=== PATIENT | female | born 2000 | race Caucasian/White ===

== ENCOUNTER 2021-04-26 12:00 | Emergency (ER) | payer OTHER, SELFPAY ==
--- NOTE | ~2021-04-26 | XR_ITS ---
EXAMINATION: XR CHEST CLINICAL INFORMATION: Cough COMPARISON: None TECHNIQUE: Portable upright AP view of the chest was obtained. FINDINGS: The lungs are clear. There is no airspace consolidation or groundglass opacity or effusion. The heart is normal in size. The vascularity is normal. The hilar and mediastinal contours and visualized bony structures are unremarkable. XR/XR chest 1V IMPRESSION: Unremarkable examination.
[2021-04-26 12:22] VITALS: BP 131/95; PULSE 87; RESP 18; TEMP 36.7; O2SAT 97; BMI 40.7
[2021-04-26 12:48] LABS: COVID-19 Test Negative (Negative); IDNOW Serial# 9DD0AD1C
[2021-04-26 15:42] VITALS: BP 126/80; PULSE 82; RESP 18; TEMP 36.4; O2SAT 98
--- NOTE | 2021-04-26 16:46 | ED_ITS ---
HPI - URI/Sore Throat General Chief Complaint: Upper Respiratory Symptoms Stated Complaint: congestion, cough, loss of taste & smell Time Seen by Provider: 04/26/21 16:04 Source: patient Mode of arrival: ambulatory History of Present Illness HPI Narrative: 21-year-old female with a past medical history of hypertension, recently finished course Amoxicillin and Augmentin for strep pharyngitis, presenting to the ED complaining of productive cough, chest congestion, rhinorrhea, sinus pressure, headache x a couple days. Reports mild SOB during cough attack. Admits to coughing up phlegm with blood streaks this morning. Denies fever, chills, ear pain, nausea/vomiting, LE edema/calf pain, recent travel, sick contacts, sore throat at present MD elicited complaint: cough, rhinorrhea and nasal congestion Related Data Previous Rx's Medication Instructions Recorded albuterol sulfate 90 mcg/actuation 2 puff INHALATION Q4-6H PRN #6.7 g 04/26/21 aerosol inhaler benzonatate 200 mg capsule 200 mg PO TID PRN #20 cap 04/26/21 fluticasone propionate 50 2 spray INTRANASAL DAILY #16 g 04/26/21 mcg/actuation nasal spray,suspension (Flonase Allergy Relief) Allergies Allergy/AdvReac Type Severity Reaction Status Date / Time No Known Allergies Allergy Unverified 04/26/21 16:09 Review of Systems Review of Systems: Constitutional: No Fever, No Chills ENT/Mouth: No Ear Pain, + Nasal Congestion, + Sinus Pain, No Hoarseness, No sore throat, + Rhinorrhea, No Swallowing Difficulty Cardiovascular: No Chest Pain, + SOB when coughing Respiratory: + Cough, + Sputum, No Wheezing, no LE edema, no calf pain Gastrointestinal: No Nausea, No Vomiting, No Diarrhea, No Constipation, No Abdominal pain Genitourinary:, No Dysuria, No Urgency, No Flank Pain Musculoskeletal: No joint pain, No Myalgias, No Joint Swelling Skin: No Skin Lesions, No rash Neuro: No Weakness, No Numbness, No Paresthesias Yes all other systems are reviewed and are negative [facility] Past Medical History Attestation statement: The following information was validated with the patient. Medical History (Updated 04/26/21 @ 16:51 by LC Davis) HTN (hypertension) Social History Social History Advance Directives: No Advance Directives Information Provided: Yes Advance Directives on File: No Physical Exam Vital Signs: Vital Signs: Last Vital Signs Temp 97.5 F 04/26/21 15:42 Pulse 82 04/26/21 15:42 Resp 18 04/26/21 15:42 BP 126/80 04/26/21 15:42 Pulse Ox 98 04/26/21 15:42 Body Mass Index 40.7 Const: General: cooperative, healthy appearing and no acute distress Orientation/consciousness: patient oriented x3 Limitations: no limitations HENMT: Head: Yes normal to inspection Ears: hearing grossly normal bilaterally, external ears normal, TM's normal bilaterally and mastoids normal General nose exam: Normal external nose present Face and sinus: Yes normal f acial exam Mouth: Normal oral and palatal mucosa present Throat: Yes posterior oropharynx normal, Yes uvula midline, No peritonsillar mass, No uvula laterally displaced and No uvular edema Eyes: General: appearance normal, both eyes and all related structures EOM: EOMs intact bilaterally Neck: Neck: Yes normal visual inspection, Yes no lymphadenopathy, Yes no meningeal signs, Yes trachea midline and Yes supple Resp: Effort & Inspection: normal respiratory effort Auscultation: clear to auscultation bilaterally, no rales, no rhonchi and no wheezes Cardio: Rate: regular rate Heart sounds: S1 normal heart sound present and S2 normal heart sound present GI: Inspection: Yes normal to inspection Palpation (GI): Soft to palpation, nontender and no guarding Skin: Rashes: no rashes Wounds: no wounds Neuro: General: patient oriented x3 and no meningeal signs Gait exam (Neuro): Normal gait present Extrem: General: Yes normal to inspection, Yes no pedal edema and Yes no calf tenderness Course Course Course Narrative: -COVID-19 negative -CXR unremarkable. Results discussed with patient including worrisome signs and symptoms and strict return precautions and need to follow-up with PCP No need for additional antibiotics at this time as patient just finished two separate courses of antibiotics for strep pharyngitis 2 days ago MDM - URI/Sore Throat MDM Narrative Medical decision making narrative: 21-year-old female with a past medical history of hypertension, recently finished course Amoxicillin and Augmentin for strep pharyngitis, presenting to the ED complaining of productive cough, chest congestion, rhinorrhea, sinus pressure, headache x a couple days. On exam vital signs stable, NAD/nontoxic, lungs CTA, oropharynx/TMs WNL. Concern for bronchitis vs sinusitis. Low concern for ACS/PE Plan: CXR, COVID-19 testing Medical Records Attestation: I reviewed the patient's medical records. Lab Data Attestation: I reviewed the patient's lab results. Labs: Lab Results 04/26/21 Range/Units 12:26 COVID-19 ([facility]ISA) Negative (Negative) COVID-19 Clin Com See Note Discharge Plan Discharge Clinical Impression: Bronchitis Patient Disposition: Home, Self-Care Instructions: Acute Bronchitis (ED) Additional Instructions: You test negative for COVID-19. Her x-ray was unremarkable. You likely a bronchitis Use albuterol inhaler for shortness of breath/wheezing Tessalon Perles for cough Flonase is a nasal decongestant Make sure staying hydrated, push fluids If symptoms persist/worsen you have constant worsening shortness of breath/wheezing, fever unresolved medications please return to the ED Please follow-up with her doctor Prescriptions: New benzonatate 200 mg capsule 200 mg PO TID PRN (Reason: cough) Qty: 20 RF: 0 albuterol sulfate 90 mcg/actuation HFA aerosol inhaler 2 puff inhalation Q4-6H PRN (Reason: shortness of breath or wheezing) Qty: 6.7 RF: 0 fluticasone propionate [Flonase Allergy Relief] 50 mcg/actuation spray,suspension 2 spray intranasal DAILY Qty: 16 RF: 0 Referrals: Physician,Unknown J [Primary Care Provider] - 2 days Stand Alone Forms: Work/School Release
[2021-04-26] MEDS: Benzonatate 100 MG CAPSULE 200 MG PO (17:20)
[2021-04-26] MEDS: HYDROcodone/Homat 5/1.5/5 ML 5 ML SYRUP PO (17:20)
== END 2021-04-26 17:36 | disposition home or self-care (01) ==
PROVIDERS: Emergency Provider Emergency Medicine
DX: J40 Bronchitis, not specified as acute or chronic (principal); I10 Essential (primary) hypertension; Z20.822 Contact with and (suspected) exposure to COVID-19
CPT/HCPCS: 36415; 71045; 87635; 99283; 99284

== ENCOUNTER 2021-05-29 11:42 | Emergency (ER) | payer OTHER, SELFPAY ==
[2021-05-29 13:26] VITALS: BP 144/82; PULSE 102; RESP 19; TEMP 37.1; O2SAT 97; BMI 40.7
--- NOTE | 2021-05-29 13:56 | ED_ITS ---
HPI - URI/Sore Throat General Chief Complaint: General Medical Stated Complaint: sore throat Time Seen by Provider: 05/29/21 13:47 Source: patient Mode of arrival: ambulatory Limitations: no limitations History of Present Illness MD elicited complaint: sore throat Pertinent past history: other (3rd bout of strep this year - tolerates amoxicillin well) Onset (ago): day(s) (3) Consistency: constant Severity: moderate Description of mucous: clear Able to tolerate fluids by mouth: Yes Exacerbating factors: swallowing Relieving factors: nothing Context: other (hx of same in past) Associated symptoms: voice changes and sore throat Treatments prior to arrival: none Related Data Previous Rx's Medication Instructions Recorded albuterol sulfate 90 mcg/actuation 2 puff INHALATION Q4-6H PRN #6.7 g 04/26/21 aerosol inhaler benzonatate 200 mg capsule 200 mg PO TID PRN #20 cap 04/26/21 fluticasone propionate 50 2 spray INTRANASAL DAILY #16 g 04/26/21 mcg/actuation nasal spray,suspension (Flonase Allergy Relief) amoxicillin 875 mg-potassium 1 tab PO BID 10 Days #20 tab 05/29/21 clavulanate 125 mg tablet (Augmentin) Allergies Allergy/AdvReac Type Severity Reaction Status Date / Time No Known Allergies Allergy Verified 05/29/21 13:29 Review of Systems Review of Systems: Constitutional : no Fever, positive Chills, positive fatigue, positive Malaise ENT/Mouth : positive sore throat, no runny nose Eyes: No Discharge Cardiovascular : No Chest Pain, No SOB Respiratory : No Cough, No Sputum Gastrointestinal : No Nausea, No Vomiting, No Diarrhea Genitourinary : No Dysuria, No Urinary Frequency Musculoskeletal : no Myalgia Skin : No rash Neuro : No Headache PMFSH Past Medical History Medical History HTN (hypertension) Social History Social History (Updated 05/29/21 @ 14:03 by Diamond Hampton DO) Patient Tobacco Use Status: Current everyday Tobacco user Advance Directives: Yes Advance Directives Information Provided: Yes Advance Directives on File: No Patient : No Physical Exam Vital Signs: Vital Signs: Last Vital Signs Temp 98.7 F 05/29/21 13:26 Pulse 102 H 05/29/21 13:26 Resp 19 05/29/21 13:26 BP 144/82 H 05/29/21 13:26 Pulse Ox 97 05/29/21 13:26 BMI result Body Mass Index 40.7 Appearance: Alert. Oriented X3. No acute distress. Eyes: Pupils equal, round and reactive to light. ENT: moderage generalized erythema with patches symmetric uvula midline tolerating secretions Neck: bilateral anterior tender mild cervical lymphadenopathy CVS: Normal heart rate and rhythm. Pulses normal. Respiratory: No respiratory distress. Breath sounds normal. Abdomen: Soft and nontender. Skin: Skin warm and dry. Normal skin color. Extremities: No lower extremity edema. Neuro: Oriented X 3. No motor deficit. No sensory deficit. MDM - URI/Sore Throat MDM Narrative Medical decision making narrative: 21 yo female smoker recurrent GAS pharyngitis - at this time she is able to tolerate saliva and uvula is midline no evidence of [employer] or deeper space infection will obtain COVID/rapid strep - motrin, dexamethasone and augmentin has not failed amoxicillin in the past. Lab Data Labs: Lab Results 05/29/21 Range/Units 13:40 S. pyogenes GrpA SWETHA Negative (Negative) Discharge Plan Discharge Clinical Impression: Pharyngitis Qualifiers: Pharyngitis/tonsillitis etiology: unspecified etiology Qualified Code(s): J02.9 - Acute pharyngitis, unspecified Patient Disposition: Home, Self-Care Instructions: Pharyngitis (ED) Additional Instructions: return to ED for any worsening symptoms or concerns call [facility] ENT Prescriptions: New amoxicillin-pot clavulanate [Augmentin] 875-125 mg tablet 1 tab PO BID 10 Days Qty: 20 RF: 0 No Action benzonatate 200 mg capsule 200 mg PO TID PRN (Reason: cough) Qty: 20 RF: 0 albuterol sulfate 90 mcg/actuation HFA aerosol inhaler 2 puff inhalation Q4-6H PRN (Reason: shortness of breath or wheezing) Qty: 6.7 RF: 0 fluticasone propionate [Flonase Allergy Relief] 50 mcg/actuation spray,suspension 2 spray intranasal DAILY Qty: 16 RF: 0 Stand Alone Forms: Work/School Release
[2021-05-29] MEDS: Amoxicillin/Potassium Clav 875 MG TABLET PO (14:02)
[2021-05-29] MEDS: dexAMETHasone sod phosphate 4 MG/ML VIAL 8 MG IVPUSH (14:02)
[2021-05-29] MEDS: Ibuprofen Oral Susp 200 MG/10 ML ORAL.SUSP 600 MG PO (14:03)
[2021-05-29 14:28] LABS: IDNOW Serial# 9DD0AD1C; Strep A Nucleic Acid Negative (Negative)
== END 2021-05-29 14:46 | disposition home or self-care (01) ==
PROVIDERS: Emergency Provider Emergency Medicine
DX: J02.9 Acute pharyngitis, unspecified (principal); I10 Essential (primary) hypertension; F17.200 Nicotine dependence, unspecified, uncomplicated
CPT/HCPCS: 36415; 87651; 99283; J1100

== ENCOUNTER 2022-03-08 19:51 | Emergency (ER) | payer OTHER, SELFPAY ==
--- NOTE | ~2022-03-08 | US_ITS ---
EXAMINATION: US OBSTETRICAL ULTRASOUND CLINICAL INFORMATION: Vaginal spotting COMPARISON: None. LMP: Not known. TECHNIQUE: Both transabdominal endovaginal scanning was performed FINDINGS: The uterus measures 9.5 x 4.4 x 6.9 cm. A gestational sac is present. A pole or yolk sac is not identified. The gestational sac has a teardrop shaped measuring 2.6 x 1.8 x 1.9 cm. This would correlate with a gestational age of 7 weeks 1 day by, as stated above, a pole was not seen. MATERNAL ADNEXA: The right maternal ovary measures 4.5 x 2.4 x 2.2 cm which includes a 2.4 x 1.4 x 1.2 cm cyst. The left maternal ovary measures 3.1 x 1.8 x 1.8 cm. There is no significant maternal adnexal mass. Trace fluid is seen in the cul-de-sac US/US OB pelvic and transvaginal IMPRESSION: A gestational sac is seen without a pole or yolk sac. Given the size of the sac, gestational age would be expected to be 7 weeks 1 day. Findings may represent a missed .
[2022-03-08 20:00] VITALS: BP 160/94; PULSE 100; RESP 18; TEMP 37.2; O2SAT 100; BMI 36.0
[2022-03-08 20:11] LABS: MANUAL DIFF FLAG NO
[2022-03-08 20:22] LABS: Basophils Absolute Auto 0.1 X10*3/uL (0.0-0.2); Basophils Percent Auto 0.8 % (0-2); Eosinophils Percent Auto 0.2 % (0-4); Hematocrit 41.2 % (37.0-47.0); Hemoglobin 14.4 g/dl (12.0-16.0); Imm Gran Abs Auto 0.01 X10*3/uL (0.00-0.03); Imm Gran Pct Auto 0.1 % (0.0-0.4); Lymphocytes Absolute Auto 2.5 X10*3/uL (1.2-4.9); Lymphocytes Percent Auto 27.1 % (20-40); Mean Corpuscular Hemoglobin 29.8 pg (27.0-33.0); Mean Corpuscular Volume 85.3 fL (80.0-98.0); Mean Platelet Volume 10.3 fL (9.4-12.3); Monocytes Absolute Auto 0.8 X10*3/uL (0.1-1.2); Neutrophils Absolute Auto 5.8 x10*3/uL (2.0-8.3); Neutrophils Percent Auto 62.8 % (45-73); Platelet Count 334 X10*3/uL (160-400); Red Blood Count 4.83 X10*6/uL (4.20-5.50); Red Cell Distribution Width 11.8 % (11.0-16.0); White Blood Count 9.3 X10*3/uL (4.8-10.8)
[2022-03-08 20:29] LABS: COVID-19 Test Negative (Negative)
[2022-03-08 20:37] LABS: Alanine Aminotransferase 18 U/L (0-31); Albumin Level 4.7 g/dL (3.5-5.0); Alkaline Phosphatase 51 U/L (39-117); Anion Gap 16 (12-20); Aspartate Amino Transferase 21 U/L (5-31); Bilirubin Direct 0.3 mg/dL (0.0-0.5); Blood Urea Nitrogen 6 mg/dL (9-16); Carbon Dioxide 28 mmol/L (22-29); Chloride 98 mmol/L (96-108); Estimated Glomerular Filt Rate > 60; Glucose Random 73 mg/dL (60-115); Lipase 17 U/L (8-78); Potassium 3.5 mmol/L (3.3-5.1); Sodium 138 mmol/L (135-145); Total Protein 7.8 g/dL (6.5-8.0)
[2022-03-08 20:48] LABS: Appearance Urine Clear; Color Urine Yellow; Glucose Urine UA Negative (Negative); Leukocyte Esterase Urine Trace (Negative); Nitrite Urine Negative (Negative); Specific Gravity - Urine 1.025 (1.005-1.025); UMIC TRIGGER UACC YES; Urine Blood Negative (Negative); Urine Ketones Trace mg/dL (Negative); Urine Protein Negative (Neg-Trace)
[2022-03-08 20:50] LABS: UPreg QC Valid YES; Urine Pregnancy POSITIVE (NEGATIVE)
[2022-03-08 20:53] LABS: Bacteria Urine 1+ (None Seen); Hyaline Casts Urine 0-2 /LPF (0-2); RBC Urine 0-2 /HPF (0-2); WBC Urine 0-5 /HPF (0-5)
--- NOTE | 2022-03-08 23:27 | ED_ITS ---
HPI - Nausea/Vomiting/Diarrhea General Chief complaint: Nausea/Vomiting/Diarrhea Stated complaint: vomitting Time Seen by Provider: 03/08/22 23:19 Source: patient Mode of arrival: ambulatory Limitations: no limitations History of Present Illness HPI Narrative: Patient with no significant past medical history been nauseated for last 1 week vaginal spotting it has irregular menstrual period, checked 3 times home pr egnancy negative comes here as still nauseated vomiting off and on diffuse abdominal pain Related Data Previous Rx's Medication Instructions Recorded albuterol sulfate 90 mcg/actuation 2 puff inhalation Q4-6H PRN 04/26/21 aerosol inhaler shortness of breath or wheezing #6.7 grams benzonatate 200 mg capsule 200 mg PO TID PRN cough #20 caps 04/26/21 fluticasone propionate 50 2 spray intranasal DAILY #16 grams 04/26/21 mcg/actuation nasal spray,suspension (Flonase Allergy Relief) amoxicillin 875 mg-potassium 1 tab PO BID 10 days #20 tabs 05/29/21 clavulanate 125 mg tablet (Augmentin) lorazepam 1 mg tablet (Ativan) 1 mg PO BEDTIME PRN anxiety #10 03/09/22 tabs ondansetron 4 mg disintegrating 4 mg PO Q6-8H PRN nausea and 03/09/22 tablet vomiting #7 tabs Allergies Allergy/AdvReac Type Severity Reaction Status Date / Time No Known Allergies Allergy Verified 05/29/21 13:29 Review of Systems Review of Systems: Yes all other systems are reviewed and are negative PMFSH Past Medical History Medical History HTN (hypertension) Social History Social History Patient Tobacco Use Status: Current everyday Tobacco user Advance Directives: No Advance Directives Information Provided: No Physical Exam Vital Signs: Vital Signs: Last Vital Signs Temp 98.9 F 03/08/22 20:00 Pulse 100 03/08/22 20:00 Resp 18 03/08/22 20:00 BP 160/94 H 03/08/22 20:00 Pulse Ox 100 03/08/22 20:00 O2 Del Method 03/08/22 20:00 BMI result Body Mass Index 36.0 Appearance: Alert. Oriented X3. No acute distress. Eyes: No pallor or icterus ENT: Pharynx normal. Oral Mucosa moist Neck: Normal inspection. Neck supple. CVS: Normal heart rate and rhythm. Pulses normal. Respiratory: No respiratory distress. Equal air entry bilateral, no wheezing/rales/rhonchi Abdomen: Soft and nontender. Bowel sounds are present, no mass palpable, no CVA tenderness Skin: Skin warm and dry. Normal skin color. Normal skin turgor. Extremities: No lower extremity edema. No calf tenderness Neuro: Oriented X 3. No motor deficit. No sensory deficit.No cerebellar signs , cranial nerves II-XII intact MDM - Nausea/Vomiting/Diarrhea MDM Narrative Medical decision making narrative: Patient is 7 weeks 1 day ultrasound showed gestational sec without pole likely having miscarriage. Patient advised to follow-up with [facility] Lab Data Attestation: I reviewed the patient's lab results. Result diagrams: 03/08/22 20:06 03/08/22 20:06 Labs: Lab Results 03/08/22 03/08/22 03/08/22 Range/Units 20:06 20:06 20:06 WBC 9.3 (4.8-10.8) X10*3/uL RBC 4.83 (4.20-5.50) X10*6/uL Hgb 14.4 (12.0-16.0) g/dl Hct 41.2 (37.0-47.0) % MCV 85.3 (80.0-98.0) fL MCH 29.8 (27.0-33.0) pg MCHC 35.0 (31.0-35.0) g/dl RDW 11.8 (11.0-16.0) % Plt Count 334 (160-400) X10*3/uL MPV 10.3 (9.4-12.3) fL Immature Gran % (Auto) 0.1 (0.0-0.4) % Neut % (Auto) 62.8 (45-73) % Lymph % (Auto) 27.1 (20-40) % Coffee % (Auto) 9.0 (2-11) % Eos % (Auto) 0.2 (0-4) % Baso % (Auto) 0.8 (0-2) % Lymph # (Auto) 2.5 (1.2-4.9) X10*3/uL Coffee # (Auto) 0.8 (0.1-1.2) X10*3/uL Eos # (Auto) 0.0 (0.0-0.4) X10*3/uL Baso # (Auto) 0.1 (0.0-0.2) X10*3/uL Abs Immat Gran (auto) 0.01 (0.00-0.03) X10*3/uL Absolute Neuts (auto) 5.8 (2.0-8.3) x10*3/uL Absolute Nucleated RBC 0.000 (0.0-0.012) X10*3/uL Nucleated RBC % (auto) 0.0 (0.0-0.2) /100WBC Sodium 138 (135-145) mmol/L Potassium 3.5 (3.3-5.1) mmol/L Chloride 98 (96-108) mmol/L Carbon Dioxide 28 (22-29) mmol/L Anion Gap 16 (12-20) BUN 6 L (9-16) mg/dL Creatinine 0.81 (0.5-1.4) mg/dL Estim Creat Clear Calc 133.0 Estimated GFR > 60 Random Glucose 73 (60-115) mg/dL Calcium 10.0 (8.4-10.2) mg/dL Total Bilirubin 1.0 (0.0-1.0) mg/dL Direct Bilirubin 0.3 (0.0-0.5) mg/dL AST 21 (5-31) U/L ALT 18 (0-31) U/L Alkaline Phosphatase 51 (39-117) U/L Total Protein 7.8 (6.5-8.0) g/dL Albumin 4.7 (3.5-5.0) g/dL Lipase 17 (8-78) U/L Beta HCG, Quant 91956 mIU/mL Urine Color Urine Appearance Urine pH (5.0-9.0) Ur Specific [place] (1.005-1.025) Urine Protein (Neg-Trace) mg/dL Urine Glucose (UA) (Negative) mg/dL Urine Ketones (Negative) mg/dL Urine Blood (Negative) Urine Nitrite (Negative) Ur Leukocyte Esterase (Negative) Urine RBC (0-2) /HPF Urine WBC (0-5) /HPF Ur Squamous Epith Cells (0-2) /HPF Urine Bacteria (None Seen) Hyaline Casts (0-2) /LPF Urine Test (NEGATIVE) COVID-19 ([facility]) Negative (Negative) COVID-19 Clin Com See Note 03/08/22 03/08/22 Range/Units 20:36 20:36 WBC (4.8-10.8) X10*3/uL RBC (4.20-5.50) X10*6/uL Hgb (12.0-16.0) g/dl Hct (37.0-47.0) % MCV (80.0-98.0) fL MCH (27.0-33.0) pg MCHC (31.0-35.0) g/dl RDW (11.0-16.0) % Plt Count (160-400) X10*3/uL MPV (9.4-12.3) fL Immature Gran % (Auto) (0.0-0.4) % Neut % (Auto) (45-73) % Lymph % (Auto) (20-40) % Coffee % (Auto) (2-11) % Eos % (Auto) (0-4) % Baso % (Auto) (0-2) % Lymph # (Auto) (1.2-4.9) X10*3/uL Coffee # (Auto) (0.1-1.2) X10*3/uL Eos # (Auto) (0.0-0.4) X10*3/uL Baso # (Auto) (0.0-0.2) X10*3/uL Abs Immat Gran (auto) (0.00-0.03) X10*3/uL Absolute Neuts (auto) (2.0-8.3) x10*3/uL Absolute Nucleated RBC (0.0-0.012) X10*3/uL Nucleated RBC % (auto) (0.0-0.2) /100WBC Sodium (135-145) mmol/L Potassium (3.3-5.1) mmol/L Chloride (96-108) mmol/L Carbon Dioxide (22-29) mmol/L Anion Gap (12-20) BUN (9-16) mg/dL Creatinine (0.5-1.4) mg/dL Estim Creat Clear Calc Estimated GFR Random Glucose (60-115) mg/dL Calcium (8.4-10.2) mg/dL Total Bilirubin (0.0-1.0) mg/dL Direct Bilirubin (0.0-0.5) mg/dL AST (5-31) U/L ALT (0-31) U/L Alkaline Phosphatase (39-117) U/L Total Protein (6.5-8.0) g/dL Albumin (3.5-5.0) g/dL Lipase (8-78) U/L Beta HCG, Quant mIU/mL Urine Color Yellow Urine Appearance Clear Urine pH 7.0 (5.0-9.0) Ur Specific [place] 1.025 (1.005-1.025) Urine Protein Negative (Neg-Trace) mg/dL Urine Glucose (UA) Negative (Negative) mg/dL Urine Ketones Trace (Negative) mg/dL Urine Blood Negative (Negative) Urine Nitrite Negative (Negative) Ur Leukocyte Esterase Trace H (Negative) Urine RBC 0-2 (0-2) /HPF Urine WBC 0-5 (0-5) /HPF Ur Squamous Epith Cells 6-10 (0-2) /HPF Urine Bacteria 1+ (None Seen) Hyaline Casts 0-2 (0-2) /LPF Urine Test POSITIVE H (NEGATIVE) COVID-19 ([facility]) (Negative) COVID-19 Clin Com Discharge Plan Discharge Clinical Impression: Threatened Patient Disposition: Home, Self-Care Instructions: Threatened Miscarriage (ED) Additional Instructions: You have 7 weeks 1 day gestational sec without pole likely having a miscarriage Follow-up with OB G repeat the blood serum hCG in 2-3 days You may expect increased vaginal bleeding in next few days Medicine for anxiety and nausea as prescribed Prescriptions: New lorazepam [Ativan] 1 mg tablet 1 mg PO BEDTIME PRN (Reason: anxiety) Qty: 10 0RF ondansetron 4 mg tablet,disintegrating 4 mg PO Q6-8H PRN (Reason: nausea and vomiting) Qty: 7 0RF No Action benzonatate 200 mg capsule 200 mg PO TID PRN (Reason: cough) Qty: 20 0RF albuterol sulfate 90 mcg/actuation HFA aerosol inhaler 2 puff inhalation Q4-6H PRN (Reason: shortness of breath or wheezing) Qty: 6.7 0RF fluticasone propionate [Flonase Allergy Relief] 50 mcg/actuation spray,suspension 2 spray intranasal DAILY Qty: 16 0RF Rx Instructions: administer into each nostril amoxicillin-pot clavulanate [Augmentin] 875-125 mg tablet 1 tab PO BID 10 Days Qty: 20 0RF Interventions: ED Discharge Assessment Last Done: 03/09/22 01:04
[2022-03-09] MEDS: hydrOXYzine HCL 50 MG TABLET PO (00:46)
[2022-03-09] MEDS: Ondansetron ODT 4 MG TAB.RAPDIS TRANSLINGU (00:46)
== END 2022-03-09 01:12 | disposition home or self-care (01) ==
PROVIDERS: Emergency Provider Internal Medicine
DX: O20.0 Threatened abortion (principal); Z3A.01 Less than 8 weeks gestation of pregnancy; O99.331 Smoking (tobacco) complicating pregnancy, first trimester; F17.200 Nicotine dependence, unspecified, uncomplicated; Z20.822 Contact with and (suspected) exposure to COVID-19; Z79.899 Other long term (current) drug therapy
CPT/HCPCS: 76801; 76817; 80053; 81001; 81025; 82248; 83690; 84702; 85025; 87635; 99282; 99283; 99284

== ENCOUNTER 2022-06-15 09:29 | Emergency (ER) | payer OTHER, SELFPAY ==
[2022-06-15 09:57] VITALS: BP 156/96; PULSE 97; RESP 20; TEMP 36.8; O2SAT 99; BMI 31.1
--- NOTE | 2022-06-15 11:48 | ED_ITS ---
HPI - Skin/Abscess/Foreign Bdy General Chief complaint: Skin/Abscess/Foreign Body Stated complaint: canker sore Time Seen by Provider: 06/15/22 11:06 History of Present Illness HPI narrative: patient complains of 2 problems First problem is a large sore on her tongue from frequent obsessive biting of her tongue, she says she has always chewing on her tongue and biting it Second complaint is anxiety which she says leads her to obsessively chew on her tongue and she has felt very anxious over the last 1-2 weeks so has been biting her tongue continuously in the more swollen it gets the harder it is not to bite it She has seen a psychiatrist for anxiety and ADHDand her treatment now is clonazepam as needed for anxiety which has been helpful in reducing the tongue biting as well as medication for ADD She denies any difficulty breathing or swallowing, she has had no fevers, she d oes not cut herself and has no other complaints of injury, she denies any suicidal or homicidal thoughts, she is not hearing voices and she feels safe to go home and to follow with her psychiatrist She did call her psychiatrist this morning who called in some clonazepam for her and said that she can follow up with him for anxiety to be seen in his office within a week Related Data Previous Rx's Medication Instructions Recorded albuterol sulfate 90 mcg/actuation 2 puff inhalation Q4-6H PRN 04/26/21 aerosol inhaler shortness of breath or wheezing #6.7 grams benzonatate 200 mg capsule 200 mg PO TID PRN cough #20 caps 04/26/21 fluticasone propionate 50 2 spray intranasal DAILY #16 grams 04/26/21 mcg/actuation nasal spray,suspension (Flonase Allergy Relief) amoxicillin 875 mg-potassium 1 tab PO BID 10 days #20 tabs 05/29/21 clavulanate 125 mg tablet (Augmentin) lorazepam 1 mg tablet (Ativan) 1 mg PO BEDTIME PRN anxiety #10 03/09/22 tabs ondansetron 4 mg disintegrating 4 mg PO Q6-8H PRN nausea and 03/09/22 tablet vomiting #7 tabs Allergies Allergy/AdvReac Type Severity Reaction Status Date / Time No Known Allergies Allergy Verified 05/29/21 13:29 [facility] Past Medical History [facility] Narrative: medical history includes ADHD and anxiety, she denies any street drug use or alcohol abuse Source: nursing notes reviewed Medical History HTN (hypertension) Social History Social History Patient Tobacco Use Status: Current everyday Tobacco user Advance Directives: No Advance Directives Information Provided: Yes Physical Exam Vital Signs: Vital Signs: Last Vital Signs Temp 98.3 F 06/15/22 09:57 Pulse 97 06/15/22 09:57 Resp 20 06/15/22 09:57 BP 156/96 H 06/15/22 09:57 Pulse Ox 99 06/15/22 09:57 O2 Del Method 06/15/22 09:57 BMI result Body Mass Index 31.1 general appearance is no acute distress, but anxious appearing Eyes pupils equal round reactive to light extraocular motions intact The mouth exam on the tip of the tongue there is an abraded contused area that is not red, no significant swelling, no evidence of infection, the rest of the oropharynx is normal with no impairment of breathing or swallowing The upper lip is abraded as well but with no laceration, no redness no swelling no discharge no signs of infection on the upper lip or the tongue The neck is supple Respiratory no distress Extremities full range of motion x4 Neuro gait and balance are normal, interaction both comprehension and expression are normal Course Course Course Narrative: patient who denied suicidal or homicidal thoughts is not hearing voices but is very anxious We discussed if she needs to see crisis today and she refused she said she has good follow-up within a week with her psychiatrist who she already called, and he did call in a prescription for clonazepam which seems to reduce the anxiety which leads to her biting her tongue The reason she is biting her tongue is anxiety and she has appropriate follow-up in a timely way and patient was discharged Discharge Plan Discharge Clinical Impression: Abrasion of tongue, Anxiety Additional Instructions: is likely or biting her tongue so frequently from an anxiety behavior Her doctor called in for temporary treatment clonazepam to your pharmacy Most important is protect the tongue by using a mouth guard, you can get [id number] lidocaine ointments which may relieve discomfort but the mouth guard is the most important to prevent continued injury to her tongue You have a good follow-up plan with psychiatrist who will see you in a timely way If you feel symptoms are getting out of control you can come to see the crisis people here any time, so return any time any worse condition or any concerns Prescriptions: No Action benzonatate 200 mg capsule 200 mg PO TID PRN (Reason: cough) Qty: 20 0RF albuterol sulfate 90 mcg/actuation HFA aerosol inhaler 2 puff inhalation Q4-6H PRN (Reason: shortness of breath or wheezing) Qty: 6.7 0RF fluticasone propionate [Flonase Allergy Relief] 50 mcg/actuation sp ray,suspension 2 spray intranasal DAILY Qty: 16 0RF Rx Instructions: administer into each nostril amoxicillin-pot clavulanate [Augmentin] 875-125 mg tablet 1 tab PO BID 10 Days Qty: 20 0RF lorazepam [Ativan] 1 mg tablet 1 mg PO BEDTIME PRN (Reason: anxiety) Qty: 10 0RF ondansetron 4 mg tablet,disintegrating 4 mg PO Q6-8H PRN (Reason: nausea and vomiting) Qty: 7 0RF Stand Alone Forms: Work/School Release
== END 2022-06-15 12:07 | disposition home or self-care (01) ==
PROVIDERS: Emergency Provider Emergency Medicine; PCP Nurse Practitioner Family
DX: K12.0 Recurrent oral aphthae (principal); F41.1 Generalized anxiety disorder; F43.0 Acute stress reaction; Z79.899 Other long term (current) drug therapy
CPT/HCPCS: 99282

== ENCOUNTER 2024-07-21 16:17 | Inpatient (IN) | payer BC, SELFPAY ==
[2024-07-21 16:28] VITALS: BP 157/116; PULSE 100; RESP 16; TEMP 36.7; O2SAT 100; BMI 30.9
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
[2024-07-21 16:35] VITALS: RESP 16
--- NOTE | 2024-07-21 16:42 | MHC.EDTECH ---
refusing blood work. RN aware
[2024-07-21 16:49] LABS: Appearance Urine Turbid; Color Urine Dark Yellow; Glucose Urine UA Negative (Negative); Leukocyte Esterase Urine Trace (Negative); Nitrite Urine Negative (Negative); PH 5.5 (5.0-9.0); Specific Gravity - Urine >= 1.030 (1.005-1.025); UMIC TRIGGER UACC YES; Urine Blood Negative (Negative); Urine Ketones 80 mg/dL (Negative); Urine Protein 100 (2+) mg/dL (Neg-Trace)
[2024-07-21 16:58] LABS: Bacteria Urine 4+ (None Seen); Hyaline Casts Urine >20 /LPF (0-2); RBC Urine 0-2 /HPF (0-2); Squamous Epithelial Cell Urine >20 /HPF (0-2); UACC Culture Trigger YES
[2024-07-21 17:00] LABS: Amphetamine Screen Urine POSITIVE (Not Detect); Barbiturates, Urine Not Detected (Not Detect); Benzodiazepines Screen Urine POSITIVE (Not Detect); Buprenorphine Scr Not Detected (Not Detect); Cannabinoid Screen Urine POSITIVE (Not Detect); Cocaine Screen Urine Not Detected (Not Detect); Fentanyl, urine Not Detected (Not Detect); Methadone Screen, Urine Not Detected (Not Detect); Opiate Screen Urine Not Detected (Not Detect); Oxycodone Screen Urine Not Detected (Not Detect); Phencyclidine Screen Urine Not Detected (Not Detect)
[2024-07-21 17:05] LABS: UPreg QC Valid YES; Urine Pregnancy NEGATIVE (NEGATIVE)
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
--- NOTE | 2024-07-21 18:19 | MHC.EDTECH ---
Pt is refusing bloodwork
[2024-07-21] MEDS: Nicotine Polacrilex 2 MG GUM BUCCAL (18:29)
[2024-07-21] MEDS: clonazePAM 1 MG TABLET PO (18:29)
--- NOTE | 2024-07-21 18:34 | PC.NURSE ---
Patient continues to escalate, pt did willingly take PO Clonazepam
--- NOTE | 2024-07-21 19:19 | PC.NURSE ---
CARE team staff attempted to have patient sign CV paperwork for admission, but patient refused stating that she wants to go home. [address] Per admission team, bed at [facility] is available tonight. Patient is crying, yelling out stating I am completely lucid! The government is going to kill my family! My whole family is at risk: my parents, my brother, everyone is at risk!
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
[2024-07-21 22:23] VITALS: BP 119/70; PULSE 86; RESP 18; TEMP 36.6; O2SAT 97
[2024-07-21] MEDS: OLANZapine 10 MG VIAL 5 MG IM (22:23)
--- NOTE | 2024-07-21 23:13 | PC.NURSE ---
Given IM Zyprexa 5mg as ordered to left deltoid. Patient was offered multiple alternatives to IM medication & restraints, but refused stating I'm lucid! You can give me horse tranquilizer and it won't help save my family! My family is going to be killed! They're at risk while I'm in here! I know it sounds crazy, but I have information that [employer] and other government people know that I have and I'm being chased and they're coming after me and my family! Patient is manic, crying, pacing, at times briefly redirectable, but then resumes cyclical pacing, conversations, and stories. 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 Patient states that she wants to leave and refuses to go to willingly (see previous notes).
[2024-07-21 23:30] VITALS: BP 104/50; PULSE 76; RESP 12; TEMP 36.6; O2SAT 96
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
[2024-07-22 08:00] VITALS: RESP 16
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
[2024-07-22] MEDS: Baclofen 20 MG TABLET PO (13:17)
[2024-07-22] MEDS: clonazePAM 0.5 MG TABLET PO ×2 (13:17→21:36)
[2024-07-22 19:51] VITALS: BP 126/55; PULSE 73; RESP 18; TEMP 36.1; O2SAT 100
[2024-07-23 08:00] VITALS: RESP 18
[2024-07-23] MEDS: Baclofen 20 MG TABLET PO (10:03)
[2024-07-23] MEDS: clonazePAM 0.5 MG TABLET PO ×2 (10:03→18:46)
[2024-07-23] MEDS: Pregabalin 100 MG CAPSULE PO (10:03)
--- NOTE | 2024-07-23 15:30 | P.PNPSI_ITS ---
Subjective Subjective Date of Service: 07/23/24 Reason For Visit: Crisis Subjective Notes: Conditional Voluntary Interim History: Laying in bed. Isolative to room. Presents similar to yesterday. Refusing lithium and risperidal. Rapid, loud and pressured speech. Paranoid. Pt stated, that sonia in the ER signed my wish. I'm lucid! I'm not manic or crazy! You guys have no idea what is going on. No civilian should know this information! They make me look crazy! . tearful. Difficult to redirect during conversation. Declining to eat or drink unless pre-packaged d/t fear of being killed. Will continue to build rapport and educate regarding medications. Medication Compliance: Intermittent Attending Groups: No Mental Status Exam Mental Status Exam Patient Appearance: Disheveled Patient Orientation: Person, Place, Time and Situation Level of Consciousness: Awake Patient Behavior: Suspicious, Swearing, Anxious, Fearful and Crying Mood Description: Fearful and Anxious Affect Description: Anxious Ability to Follow Directions: Good Speech Pattern: Rambling, Rapid, Loud, Pressured and Includes Profanity Hallucinations: None Delusions: Paranoid Ideation and Grandiose Thought Process: Racing Thought Content: positive for Racing Judgement: Poor Diagnostics Vital Signs (24Hr): Vital Signs - 24 hr 07/22/24 19:51 07/23/24 08:00 Temperature 96.9 F Pulse Rate 73 Respiratory Rate 18 18 Blood Pressure 126/55 L Pulse Oximetry 100 Oxygen Delivery Method Room Air Room Air BMI result Body Mass Index 30.9 Labs Labs: Laboratory Results - last 48 hr 07/21/24 16:42 Urine Color Dark Yellow Urine Appearance Turbid Urine pH 5.5 Ur Specific [place] >= 1.030 H Urine Protein 100 (2+) H Urine Glucose (UA) Negative Urine Ketones 80 Urine Blood Negative Urine Nitrite Negative Ur Leukocyte Esterase Trace H Urine RBC 0-2 Urine WBC 6-10 H Ur Squamous Epith Cells >20 Urine Bacteria 4+ Hyaline Casts >20 Urine Test NEGATIVE Urine Opiates Screen Not Detected Ur Buprenorphine Scrn Not Detected Ur Oxycodone Screen Not Detected Urine Methadone Screen Not Detected Urine Fentanyl Screen Not Detected Ur Barbiturates Screen Not Detected Ur Phencyclidine Scrn Not Detected Ur Amphetamines Screen POSITIVE H U Benzodiazepines Scrn POSITIVE H Urine Cocaine Screen Not Detected U Marijuana (THC) Screen POSITIVE H Medications Medications Current Medications Acetaminophen (Acetaminophen 325 Mg Tablet) 650 mg PO Q6H PRN PRN Reason: Headache/Pain, Scale 1-10 Al Hydroxide/Mg Hydroxide (Magnesium Hydrox/Alum Hydrox 30 Ml Oral.Susp) 30 ml PO Q6H PRN PRN Reason: Heartburn/Nausea Baclofen (Baclofen 20 Mg Tablet) 20 mg PO DAILY [facility] Last Admin: 07/23/24 10:03 Dose: 20 mg Clonazepam (Clonazepam 0.5 Mg Tablet) 0.5 mg PO BID [facility] Last Admin: 07/23/24 10:03 Dose: 0.5 mg Hydroxyzine HCl (Hydroxyzine Hcl 25 Mg Tablet) 25 mg PO Q6H PRN PRN Reason: mild anxiety [place] Carbonate ([place] Carbonate Er 300 Mg Tablet.Er) 300 mg PO BEDTIME [facility] Last Admin: 07/22/24 21:45 Dose: Not Given Magnesium Hydroxide (Milk Of Magnesia 30 Ml Oral.Susp) 30 ml PO DAILY PRN PRN Reason: Constipation Nicotine (Nicotine 21 Mg Patch.Td24) 21 mg TRANSDERMA DAILY PRN PRN Reason: Nicotine Cravings Nicotine Polacrilex (Nicotine Polacrilex 2 Mg Gum) 2 mg BUCCAL Q2H PRN PRN Reason: Nicotine Cravings Last Admin: 07/21/24 18:29 Dose: 2 mg Olanzapine (Olanzapine 5 Mg Tablet) 5 mg PO Q4H PRN PRN Reason: agitation/psychosis Pregabalin (Pregabalin 100 Mg Capsule) 100 mg PO BID [facility] Last Admin: 07/23/24 10:03 Dose: 100 mg Risperidone (Risperidone 1 Mg Tablet) 1 mg PO BID [facility] Last Admin: 07/23/24 09:34 Dose: Not Given Trazodone HCl (Trazodone Hcl 50 Mg Tablet) 50 mg PO BEDTIME MRX1 PRN PRN Reason: Insomnia Allergies Allergies Allergy/AdvReac Type Severity Reaction Status Date / Time No Known Allergies Allergy Verified 07/21/24 16:32 Assessment & Plan Assessment & Plan (1) Psychosis: Status: Acute Code(s): F29 - Unspecified psychosis not due to a substance or known physiological condition (2) PTSD (post-traumatic stress disorder): Status: Acute Code(s): F43.10 - Post-traumatic stress disorder, unspecified Plan Patient is a 24-year-old female with history of MDD, PTSD who presented to [facility] on a section 12 due to making delusional statements of being chased due to knowing too much about Duy Hernández. Plan: CV 15 minute safety checks Start: Risperdal 1mg BID PO [place] ER 300mg PO bedtime Klonopin 0.5mg PO BID Continue Lyrica 100mg PO BID Hold sertraline, Adderall Obtain collateral Build rapport Encourage groups Discharge planning 07/23: Will continue to build rapport and educate regarding medications. Patient educated on: diagnosis and medication risk/benefits Reason for continued inpatient stay Substantial Risk for: med/psych decompensation Time Spent With Patient Time: Total time managing care of this patient today _20___ minutes.
[2024-07-23] MEDS: Acetaminophen 325 MG TABLET 650 MG PO (18:46)
[2024-07-23] MEDS: Pregabalin 200 MG CAPSULE PO (18:47)
[2024-07-24] MEDS: Baclofen 20 MG TABLET PO (09:34)
[2024-07-24] MEDS: Pregabalin 200 MG CAPSULE PO (09:34)
[2024-07-24] MEDS: clonazePAM 0.5 MG TABLET PO ×2 (09:34→16:40)
[2024-07-24 10:01] LABS: Basophils Absolute Auto 0.1 X10*3/uL (0.0-0.2); Basophils Percent Auto 1.9 % (0-2); Eosinophils Absolute Auto 0.2 X10*3/uL (0.0-0.4); Eosinophils Percent Auto 6.1 % (0-4); Hematocrit 45.5 % (37.0-47.0); Hemoglobin 16.3 g/dl (12.0-16.0); Imm Gran Abs Auto 0.02 X10*3/uL (0.00-0.03); Imm Gran Pct Auto 0.6 % (0.0-0.4); Lymphocytes Absolute Auto 1.5 X10*3/uL (1.2-4.9); Lymphocytes Percent Auto 48.1 % (20-40); MANUAL DIFF FLAG SCAN; Mean Corpuscular HGB Conc 35.8 g/dl (31.0-35.0); Mean Corpuscular Volume 83.8 fL (80.0-98.0); Mean Platelet Volume 10.6 fL (9.4-12.3); Monocytes Absolute Auto 0.4 X10*3/uL (0.1-1.2); Monocytes Percent Auto 12.5 % (2-11); Neutrophils Percent Auto 30.8 % (45-73); Platelet Count 289 X10*3/uL (160-400); Red Blood Count 5.43 X10*6/uL (4.20-5.50); Red Cell Distribution Width 12.1 % (11.0-16.0); SCAN SMEAR FLAG 1; White Blood Count 3.1 X10*3/uL (4.8-10.8)
[2024-07-24 11:06] LABS: SLIDE REVIEW VERIFIED
[2024-07-24 12:13] VITALS: BP 131/84; PULSE 78; TEMP 36.7; O2SAT 100
[2024-07-24] MEDS: Nicotine Polacrilex 2 MG GUM BUCCAL ×2 (13:06→15:43)
[2024-07-24] MEDS: Nicotine 21 MG PATCH.TD24 TRANSDERMA (13:07)
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
[2024-07-24] MEDS: hydrOXYzine HCL 25 MG TABLET PO (15:43)
[2024-07-24 18:36] LABS: Glucose, Whole Blood 135 mg/dL (60-115)
--- NOTE | 2024-07-24 18:42 | PM.EVENT ---
Event Note Date of Service: 07/24/24 Event Note: COMMERCIAL MANAGEMENT ACCOUNTANT called. Patient reports severe back pain radiating to right leg lowered herself to the ground writhing in pain on the ground. Did not hit head or injure herself. Similar to previous back spasm attacks. Reports history of lumbar disc disease. Patient helped back to bed we will give 1 mg of Ativan IM continue with muscle relaxants Time Spent With Patient Time: Total time managing care of this patient today ____ minutes.
[2024-07-24] MEDS: LORazepam 2 MG/ML VIAL 1 MG IM (18:53)
[2024-07-24 20:00] VITALS: BP 124/77; PULSE 74; RESP 14; TEMP 36.3; O2SAT 98
--- NOTE | 2024-07-24 20:09 | PC.NURSE ---
At approximately 18:45 the [facility] reported that Agata had fallen in group room b but did not hit her head. Agata was yelling in pain and was not communicating initially with staff. A rapid response was called. Staff responded to the floor and ordered medications for pain for her. After she was able to speak, she explained that this happens to her frequently when she has been in bed too long. She then said that she lowered herself to the floor due to pain and had not fallen. She was helped into bed and given 1mg Ativan IM to help with pain.
[2024-07-25 09:08] VITALS: BP 129/69; PULSE 58; RESP 16; TEMP 36.8; O2SAT 98
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
[2024-07-25] MEDS: clonazePAM 0.5 MG TABLET PO ×2 (09:38→15:03)
[2024-07-25] MEDS: Baclofen 20 MG TABLET PO (09:38)
[2024-07-25] MEDS: Pregabalin 200 MG CAPSULE PO ×2 (09:39→19:54)
[2024-07-25] MEDS: Nicotine Polacrilex 2 MG GUM BUCCAL ×2 (12:54→18:46)
[2024-07-25] MEDS: Nicotine 21 MG PATCH.TD24 TRANSDERMA (14:07)
[2024-07-25] MEDS: Baclofen 10 MG TABLET PO ×2 (14:07→19:54)
[2024-07-25] MEDS: hydrOXYzine HCL 25 MG TABLET PO ×2 (14:08→19:52)
[2024-07-25] MEDS: Acetaminophen 325 MG TABLET 650 MG PO (14:09)
[2024-07-25] MEDS: OLANZapine 5 MG TABLET PO (18:46)
[2024-07-25] MEDS: Lithium Carbonate ER 300 MG TABLET.ER PO (19:54)
[2024-07-25] MEDS: risperiDONE 1 MG TABLET PO (19:54)
[2024-07-25 20:00] VITALS: RESP 20
--- NOTE | 2024-07-26 02:23 | PC.NURSE ---
Vomiting/ Diarrhea - Per staff at approx 0115 pt woke suddenly from sleeping and began vomiting, RN notified at that time. Pt continued intermittently vomiting for over 1 hour then pt reported new onset diarrhea, fecal incontinence during vomiting episode. Pt VSS, appears pale, diaphoretic. Pt is mildly panicked, reports I feel like complete shit, I need Gatorade shouting RIGHT NOW, RIGHT NOW Pt redirectable but began crying. Pt encouraged to avoid PO intake, provided reassurance and education regarding potential causes. Pt provided clean linens and clothing at this time. drop worker provider contacted via [employer] @ [phone], Shannan ordered.
[2024-07-26] MEDS: Ondansetron ODT 4 MG TAB.RAPDIS TRANSLINGU ×3 (05:36→21:02)
[2024-07-26 08:00] VITALS: RESP 16
[2024-07-26] MEDS: Baclofen 10 MG TABLET PO ×3 (09:07→20:57)
[2024-07-26] MEDS: clonazePAM 0.5 MG TABLET PO ×2 (09:07→16:12)
[2024-07-26] MEDS: Pregabalin 200 MG CAPSULE PO ×2 (09:07→20:57)
--- NOTE | 2024-07-26 09:38 | P.PNPSI_ITS ---
Subjective Subjective Date of Service: 07/26/24 Reason For Visit: Crisis Subjective Notes: Conditional Voluntary Healthcare Proxy: No Guardianship: No Medical Problems Affecting Mental Status: No Interim History: Pt with flu/gi sx. Negative flu/sars/RSV, +norovirus. Pt asking for discharge, concern about loss of her job if she does not return to work. We discussed this as a violation of labor laws and ADA violation. I've been here too long Encouarged to recover, meet with primary providers on 07/28 and plan from there. Non compliant with Risperdal/[place] Medication Compliance: No Side effects from medications: No Attending Groups: No Review of Systems Acute medical concerns: No Medical Review of Systems: unchanged Review of Systems Review of Systems GI flu sx Mental Status Exam Mental Status Exam Patient Appearance: Fatigued Patient Orientation: Person, Place and Situation Level of Consciousness: Alert Patient Behavior: Talkative Mood Description: Constricted Affect Description: Constricted Patient Cognition Impaired: No Ability to Follow Directions: Fair Speech Pattern: Spontaneous Speech Memory Description: Remote Impaired Hallucinations: None Delusions: Present Thought Process: Distracted and Rumination Thought Content: positive for Circumstantial and positive for Perseveration Judgement: Fair Diagnostics Vital Signs (24Hr): Vital Signs - 24 hr 07/25/24 20:00 Respiratory Rate 20 BMI result Body Mass Index 30.9 Labs 07/24/24 09:42 Labs: Laboratory Results - last 48 hr 07/24/24 07/24/24 09:42 18:32 WBC 3.1 L RBC 5.43 Hgb 16.3 H Hct 45.5 MCV 83.8 MCH 30.0 MCHC 35.8 H RDW 12.1 Plt Count 289 MPV 10.6 Immature Gran % (Auto) 0.6 H Neut % (Auto) 30.8 L Lymph % (Auto) 48.1 H [place] % (Auto) 12.5 H Eos % (Auto) 6.1 H Baso % (Auto) 1.9 Lymph # (Auto) 1.5 [place] # (Auto) 0.4 Eos # (Auto) 0.2 Baso # (Auto) 0.1 Abs Immat Gran (auto) 0.02 Absolute Neuts (auto) 1.0 L Absolute Nucleated RBC 0.000 Nucleated RBC % (auto) 0.0 Smear Tech's Comments VERIFIED POC Glucose 135 H Medications Medications Current Medications Acetaminophen (Acetaminophen 325 Mg Tablet) 650 mg PO Q6H PRN PRN Reason: Headache/Pain, Scale 1-10 Last Admin: 07/25/24 14:09 Dose: 650 mg Al Hydroxide/Mg Hydroxide (Magnesium Hydrox/Alum Hydrox 30 Ml Oral.Susp) 30 ml PO Q6H PRN PRN Reason: Heartburn/Nausea Baclofen (Baclofen 10 Mg Tablet) 10 mg PO TID [facility] Last Admin: 07/26/24 09:07 Dose: 10 mg Clonazepam (Clonazepam 0.5 Mg Tablet) 0.5 mg PO BID@0900,1600 [facility] Last Admin: 07/26/24 09:07 Dose: 0.5 mg Hydroxyzine HCl (Hydroxyzine Hcl 25 Mg Tablet) 25 mg PO Q6H PRN PRN Reason: mild anxiety Last Admin: 07/25/24 19:52 Dose: 25 mg [place] Carbonate ([place] Carbonate Er 300 Mg Tablet.Er) 300 mg PO BEDTIME [facility] Last Admin: 07/25/24 19:54 Dose: 300 mg Magnesium Hydroxide (Milk Of Magnesia 30 Ml Oral.Susp) 30 ml PO DAILY PRN PRN Reason: Constipation Nicotine (Nicotine 21 Mg Patch.Td24) 21 mg TRANSDERMA DAILY PRN PRN Reason: Nicotine Cravings Last Admin: 07/25/24 14:07 Dose: 21 mg Nicotine Polacrilex (Nicotine Polacrilex 2 Mg Gum) 2 mg BUCCAL Q2H PRN PRN Reason: Nicotine Cravings Last Admin: 07/25/24 18:46 Dose: 2 mg Olanzapine (Olanzapine 5 Mg Tablet) 5 mg PO Q4H PRN PRN Reason: agitation/psychosis Last Admin: 07/25/24 18:46 Dose: 5 mg Ondansetron HCl (Ondansetron Odt 4 Mg Tab.Rapdis) 4 mg TRANSLINGU Q4H PRN PRN Reason: Nausea and Vomiting Stop: 07/28/24 02:31 Last Admin: 07/26/24 05:36 Dose: 4 mg Pregabalin (Pregabalin 200 Mg Capsule) 200 mg PO BID [facility] Last Admin: 07/26/24 09:07 Dose: 200 mg Risperidone (Risperidone 1 Mg Tablet) 1 mg PO BID [facility] Last Admin: 07/25/24 19:54 Dose: 1 mg Trazodone HCl (Trazodone Hcl 50 Mg Tablet) 50 mg PO BEDTIME MRX1 PRN PRN Reason: Insomnia Allergies Allergies Allergy/AdvReac Type Severity Reaction Status Date / Time No Known Allergies Allergy Verified 07/21/24 16:32 Assessment & Plan Assessment & Plan (1) Psychosis: Status: Acute Code(s): F29 - Unspecified psychosis not due to a substance or known physiological condition (2) PTSD (post-traumatic stress disorder): Status: Acute Code(s): F43.10 - Post-traumatic stress disorder, unspecified Plan Patient is a 24-year-old female with history of MDD, PTSD who presented to [facility] on a section 12 due to making delusional statements of being chased due to knowing too much about Orlando Musk. Plan: CV 15 minute safety checks Start: Risperdal 1mg BID PO [place] ER 300mg PO bedtime Klonopin 0.5mg PO BID Continue Lyrica 100mg PO BID Hold sertraline, Adderall Obtain collateral Build rapport Encourage groups Discharge planning 07/23: Will continue to build rapport and educate regarding medications. 07/24: Active on unit. not attending groups. Continues rapid, loud and with pressured speech. Paranoid. Grandiose. Labile. Eating meals and drinking today. Continues to perseverate on conspiracy theory involving Duy Musk. Pt stated, you guys have no idea what is going on! This is all a set up! I'm not manic or crazy even though I sound it! You have to let me go because I think he's going to take me to get sex trafficked from here! . Continues to refuse lithium and risperidal. 07/25: Encouraged pt to consider treatment 07/26: positive norovirus. Continue to encourage treatment. Reason for continued inpatient stay Substantial Risk for: rapid decompensation and med/psych decompensation Time Spent With Patient Time: Total time managing care of this patient today ____ minutes.
[2024-07-26 10:09] LABS: Influenza A PCR NEGATIVE (Negative); Influenza B PCR NEGATIVE (Negative); Resp Syncy Virus RNA Qual PCR NEGATIVE (Negative); SARS COV2 PCR INHOUSE NEGATIVE (Negative)
--- NOTE | 2024-07-26 16:04 | PC.NURSE ---
Addendum entered by Precious Doyle RN 07/26/24 16:15: pt came to nurse to requested her 3pm scheduled medications and reports she is in fact experiencing diarrhea Original Note: pt reports she is not eating today for fear of vomiting, she denies diarrhea and is currently sleeping in bed, respirations even and unlabored. She refused 3pm scheduled Baclofen and Klonopin
[2024-07-26] MEDS: hydrOXYzine HCL 25 MG TABLET PO (18:46)
[2024-07-26 19:38] VITALS: BP 139/90; PULSE 132; RESP 16; TEMP 36.9; O2SAT 98
--- NOTE | 2024-07-27 08:28 | HO.PSYCHPN ---
Subjective Subjective Date of Service: 07/27/24 Reason For Visit: Crisis Healthcare Proxy: No Guardianship: No Medical Problems Affecting Mental Status: No Interim History: Continues to focus on discharge, returning to work and continues to decline medications. Encouraged to consider treatment, however she does not believe she is in need of this. I just lost some sleep and now I am better. Attempted to answer FMLA questions pt had today Medication Compliance: No Side effects from medications: No Attending Groups: No Review of Systems Review of Systems denies +Norovirus Mental Status Exam Mental Status Exam Patient Appearance: Fatigued Patient Orientation: Person, Place and Situation Level of Consciousness: Alert Patient Behavior: Talkative Mood Description: Constricted Affect Description: Constricted Patient Cognition Impaired: No Ability to Follow Directions: Fair Speech Pattern: Spontaneous Speech Memory Description: Remote Impaired Hallucinations: None Delusions: Present Thought Process: Distracted and Rumination Thought Content: positive for Circumstantial and positive for Perseveration Judgement: Fair Diagnostics Vital Signs (24Hr): Vital Signs - 24 hr 07/26/24 19:38 Temperature 98.4 F Pulse Rate 132 H Respiratory Rate 16 Blood Pressure 139/90 H Pulse Oximetry 98 Oxygen Delivery Method Room Air BMI result Body Mass Index 30.9 Labs 07/24/24 09:42 Labs: Laboratory Results - last 48 hr 07/26/24 09:23 Influenza Type A (PCR) NEGATIVE Influenza Type B (PCR) NEGATIVE RSV RNA Qual (PCR) NEGATIVE SARS-CoV-2 RNA (RT-PCR) NEGATIVE Medications Medications Current Medications Acetaminophen (Acetaminophen 325 Mg Tablet) 650 mg PO Q6H PRN PRN Reason: Headache/Pain, Scale 1-10 Last Admin: 07/25/24 14:09 Dose: 650 mg Al Hydroxide/Mg Hydroxide (Magnesium Hydrox/Alum Hydrox 30 Ml Oral.Susp) 30 ml PO Q6H PRN PRN Reason: Heartburn/Nausea Baclofen (Baclofen 10 Mg Tablet) 10 mg PO TID [facility] Last Admin: 07/26/24 20:57 Dose: 10 mg Clonazepam (Clonazepam 0.5 Mg Tablet) 0.5 mg PO BID@0900,1600 [facility] Last Admin: 07/26/24 16:12 Dose: 0.5 mg Hydroxyzine HCl (Hydroxyzine Hcl 25 Mg Tablet) 25 mg PO Q6H PRN PRN Reason: mild anxiety Last Admin: 02/16/25 18:46 Dose: 25 mg [place] Carbonate ([place] Carbonate Er 300 Mg Tablet.Er) 300 mg PO BEDTIME [facility] Last Admin: 07/26/24 20:58 Dose: Not Given Magnesium Hydroxide (Milk Of Magnesia 30 Ml Oral.Susp) 30 ml PO DAILY PRN PRN Reason: Constipation Nicotine (Nicotine 21 Mg Patch.Td24) 21 mg TRANSDERMA DAILY PRN PRN Reason: Nicotine Cravings Last Admin: 07/25/24 14:07 Dose: 21 mg Nicotine Polacrilex (Nicotine Polacrilex 2 Mg Gum) 2 mg BUCCAL Q2H PRN PRN Reason: Nicotine Cravings Last Admin: 07/25/24 18:46 Dose: 2 mg Olanzapine (Olanzapine 5 Mg Tablet) 5 mg PO Q4H PRN PRN Reason: agitation/psychosis Last Admin: 07/25/24 18:46 Dose: 5 mg Ondansetron HCl (Ondansetron Odt 4 Mg Tab.Rapdis) 4 mg TRANSLINGU Q4H PRN PRN Reason: Nausea and Vomiting Stop: 07/28/24 02:31 Last Admin: 07/26/24 21:02 Dose: 4 mg Pregabalin (Pregabalin 200 Mg Capsule) 200 mg PO BID [facility] Last Admin: 07/26/24 20:57 Dose: 200 mg Risperidone (Risperidone 1 Mg Tablet) 1 mg PO BID [facility] Last Admin: 07/26/24 20:58 Dose: Not Given Trazodone HCl (Trazodone Hcl 50 Mg Tablet) 50 mg PO BEDTIME MRX1 PRN PRN Reason: Insomnia Allergies Allergies Allergy/AdvReac Type Severity Reaction Status Date / Time No Known Allergies Allergy Verified 07/21/24 16:32 Assessment & Plan Assessment & Plan (1) Psychosis: Status: Acute Code(s): F29 - Unspecified psychosis not due to a substance or known physiological condition (2) PTSD (post-traumatic stress disorder): Status: Acute Code(s): F43.10 - Post-traumatic stress disorder, unspecified Plan Patient is a 24-year-old female with history of MDD, PTSD who presented to [facility] on a section 12 due to making delusional statements of being chased due to knowing too much about Duy Musk. Plan: CV 15 minute safety checks Start: Risperdal 1mg BID PO [place] ER 300mg PO bedtime Klonopin 0.5mg PO BID Continue Lyrica 100mg PO BID Hold sertraline, Adderall Obtain collateral Build rapport Encourage groups Discharge planning 07/23: Will continue to build rapport and educate regarding medications. 07/24: Active on unit. not attending groups. Continues rapid, loud and with pressured speech. Paranoid. Grandiose. Labile. Eating meals and drinking today. Continues to perseverate on conspiracy theory involving Duy Hernández. Pt stated, you guys have no idea what is going on! This is all a set up! I'm not manic or crazy even though I sound it! You have to let me go because I think he's going to take me to get sex trafficked from here! . Continues to refuse lithium and risperidal. 07/25: Encouraged pt to consider treatment 07/27: Education attempted re treatment. Pt not currently interested. Reason for continued inpatient stay Substantial Risk for: rapid decompensation Time Spent With Patient Time: Total time managing care of this patient today ____ minutes.
[2024-07-27] MEDS: Baclofen 10 MG TABLET PO ×3 (08:45→20:39)
[2024-07-27] MEDS: Pregabalin 200 MG CAPSULE PO ×2 (08:45→20:39)
[2024-07-27] MEDS: clonazePAM 0.5 MG TABLET PO ×2 (08:45→15:04)
[2024-07-27 08:46] VITALS: BP 119/87; PULSE 118; TEMP 36.6; O2SAT 97
[2024-07-27] MEDS: hydrOXYzine HCL 25 MG TABLET PO ×2 (11:14→20:39)
[2024-07-27] MEDS: Nicotine 21 MG PATCH.TD24 TRANSDERMA (11:25)
[2024-07-27 11:29] LABS: Adenovirus F 40/41 Not Detected (Not Detect.); Astrovirus Not Detected (Not Detect.); Campylobacter Not Detected (Not Detect.); Cryptosporidium Not Detected (Not Detect.); Cyclospora cayetanensis Not Detected (Not Detect.); E. coli EAEC Not Detected (Not Detect.); E. coli EPEC Not Detected (Not Detect.); E. coli ETEC Not Detected (Not Detect.); E. coli STEC Not Detected (Not Detect.); Entamoeba histolytica Not Detected (Not Detect.); Giardia lamblia Not Detected (Not Detect.); Plesiomonas shigelloides Not Detected (Not Detect.); Rotavirus A Not Detected (Not Detect.); Salmonella Not Detected (Not Detect.); Sapovirus Not Detected (Not Detect.); Shigella sp./EIEC Not Detected (Not Detect.); Vibrio Not Detected (Not Detect.); Vibrio Cholerae Not Detected (Not Detect.); Yersinia enterocolitica Not Detected (Not Detect.)
[2024-07-27 11:41] LABS: Norovirus GI/GII Detected (Not Detect.)
[2024-07-27] MEDS: Nicotine Polacrilex 2 MG GUM BUCCAL (15:52)
[2024-07-27] MEDS: Ondansetron ODT 4 MG TAB.RAPDIS TRANSLINGU (16:52)
[2024-07-27 20:00] VITALS: BP 150/92; PULSE 104; RESP 16; TEMP 36.8; O2SAT 99
[2024-07-28] MEDS: Pregabalin 200 MG CAPSULE PO ×2 (08:29→20:40)
[2024-07-28] MEDS: Baclofen 10 MG TABLET PO ×3 (08:30→20:40)
[2024-07-28] MEDS: clonazePAM 0.5 MG TABLET PO ×2 (08:30→15:45)
[2024-07-28] MEDS: Nicotine 21 MG PATCH.TD24 TRANSDERMA (09:38)
[2024-07-28 10:01] VITALS: BP 157/83; PULSE 112; TEMP 36.4; O2SAT 97
[2024-07-28] MEDS: hydrOXYzine HCL 25 MG TABLET PO ×2 (11:34→20:40)
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
[2024-07-28 20:00] VITALS: BP 134/84; PULSE 114; TEMP 36.7; O2SAT 97
[2024-07-28] MEDS: Acetaminophen 325 MG TABLET 650 MG PO (20:41)
[2024-07-29] MEDS: clonazePAM 0.5 MG TABLET PO ×2 (08:20→15:38)
[2024-07-29] MEDS: Nicotine Polacrilex 2 MG GUM BUCCAL ×2 (08:20→18:39)
[2024-07-29] MEDS: Baclofen 10 MG TABLET PO ×3 (08:20→20:42)
[2024-07-29] MEDS: Nicotine 21 MG PATCH.TD24 TRANSDERMA (08:20)
[2024-07-29] MEDS: Pregabalin 200 MG CAPSULE PO ×2 (08:20→20:41)
[2024-07-29 09:01] VITALS: BP 138/87; PULSE 116; TEMP 36.5; O2SAT 99
[2024-07-29] MEDS: hydrOXYzine HCL 25 MG TABLET PO ×2 (09:57→17:41)
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
[2024-07-29] MEDS: Ondansetron ODT 4 MG TAB.RAPDIS TRANSLINGU (15:39)
[2024-07-29 20:00] VITALS: BP 135/95; PULSE 111; TEMP 36.7; O2SAT 98
[2024-07-30] MEDS: Nicotine 21 MG PATCH.TD24 TRANSDERMA (06:35)
[2024-07-30 08:00] VITALS: BP 148/72; PULSE 91; TEMP 36.7; O2SAT 96
[2024-07-30] MEDS: Ondansetron ODT 4 MG TAB.RAPDIS TRANSLINGU (08:27)
[2024-07-30] MEDS: Baclofen 10 MG TABLET PO (09:09)
[2024-07-30] MEDS: Pregabalin 200 MG CAPSULE PO (09:09)
[2024-07-30] MEDS: clonazePAM 0.5 MG TABLET PO (10:08)
--- NOTE | 2024-09-14 16:53 | PM.PSYDC ---
DS: Providers Provider Date of Service: 07/30/24 Date of admission: 07/21/24 19:54 Date of discharge: 07/30/24 Primary care physician: Unknown Physician Admitting clinician: Kirsten Posada Attending physician on admission: Roberto Carlos Salinas Attending physician on discharge: Roberto Carlos Salinas Discharging clinician: Annabel Quesada DS: Diagnosis Discharge Diagnosis (1) Psychosis: Status: Resolved (2) PTSD (post-traumatic stress disorder): Status: Acute DS: Medications Discharge Medications Home Medications: Previous Rx's ?Medication ?Instructions ?Recorded acetaminophen 325 mg tablet 650 mg (2 x 325 mg) PO Q6H PRN 08/21/24 Headache/Pain, Scale 1-10 #0 tabs amlodipine 5 mg tablet 5 mg PO DAILY #7 tabs 09/04/24 amoxicillin 500 mg tablet 500 mg PO BID #10 tabs 09/04/24 baclofen 20 mg tablet 20 mg PO BID #14 tabs 09/04/24 clonazepam 0.5 mg tablet 0.5 mg PO BID PRN 09/04/24 Anxiety/Restlessness #14 tabs guanfacine 1 mg tablet,extended 3 mg (3 x 1 mg) PO DAILY #21 tabs 09/04/24 release 24 hr hydroxyzine HCl 25 mg tablet 25 mg PO Q6H PRN mild anxiety #15 09/04/24 tabs metformin 500 mg tablet,extended 500 mg PO BEDTIME #7 tabs 09/04/24 release 24 hr olanzapine 15 mg tablet 15 mg PO BEDTIME #14 tabs 09/04/24 pregabalin 200 mg capsule (Lyrica) 200 mg PO BID #14 caps 09/04/24 trazodone 50 mg tablet 50 mg PO BEDTIME MRX1 PRN Insomnia 09/04/24 #14 tabs Mental Status Exam Mental Status Exam Patient Appearance: Fatigued Patient Orientation: Person, Place and Situation Level of Consciousness: Alert Patient Behavior: Talkative Mood Description: Constricted Affect Description: Constricted Patient Cognition Impaired: No Ability to Follow Directions: Fair Speech Pattern: Spontaneous Speech Memory Description: Remote Impaired Hallucinations: None Delusions: Present Thought Process: Distracted and Rumination Thought Content: positive for Circumstantial and positive for Perseveration Judgement: Fair Data Data Completed and Pending Completed studies during hospitalization [Text1]: 07/21/24 17:00 Urine clean catch - Clean Catch Midstream Urine Culture - Final DS: Summary Hospital Course Hospital Course: Admitted to adult psychiatry 07/21/24-07/30/24 for exacerbation of PTSD with psychosis. Pt was delusional, reportedly destroyed mailboxes and reported feeling chased with delusions about [place]. Medications were evaluated. Pt essentially chose to not accept treatment, asking to return to her providers with [facility]. Pt was observed in the milieu. Alliances were attempted. She maintained behavioral control, declined treatment and is discharged to return to her out pt team. She is aware that she may call or return at any time to continue treatment. Status at Discharge Functional status at discharge: independent ambulation Overall status at discharge: patient is progressing back to baseline Time Spent with Patient Time attestation: Total time managing care of this patient today ____ minutes. Time spent: Less than 30 minutes Discharge Plan Discharge Anticipated Discharge Date/Time: 07/30/24 12:00 Patient Disposition: Home, Self-Care Discharge Diagnosis: PTSD Psychosis, resolved Referrals: [facility] [Other] - 1 Week [facility] Therapy with Trenton Sanz [Other] - 08/11/24 1:00 pm [facility] Psychiatry with Josephine Hughes [Other] - 08/27/24 11:20 am (Telehealth) Discharge Medications: Discontinued benzonatate 200 mg capsule 200 mg PO TID PRN (Reason: cough) Qty: 20 0RF amoxicillin-pot clavulanate [Augmentin] 875-125 mg tablet 1 tab PO BID 10 Days Qty: 20 0RF lorazepam [Ativan] 1 mg tablet 1 mg PO BEDTIME PRN (Reason: anxiety) Qty: 10 0RF No Action acetaminophen 325 mg Tablet 650 mg PO Q6H PRN (Reason: Headache/Pain, Scale 1-10) Qty: 0 0RF trazodone 50 mg Tablet 50 mg PO BEDTIME MRX1 PRN (Reason: Insomnia) Qty: 14 0RF clonazepam 0.5 mg Tablet 0.5 mg PO BID PRN (Reason: Anxiety/Restlessness) Qty: 14 0RF amlodipine 5 mg Tablet 5 mg PO DAILY Qty: 7 0RF Protocol: Hold for SBP< HOLD for SBP < : 90 hydroxyzine HCl 25 mg Tablet 25 mg PO Q6H PRN (Reason: mild anxiety) Qty: 15 0RF metformin 500 mg Tablet Extended Release 24 Hr 500 mg PO BEDTIME Qty: 7 0RF guanfacine 1 mg Tablet Extended Release 24 Hr 3 mg PO DAILY Qty: 21 0RF baclofen 20 mg Tablet 20 mg PO BID Qty: 14 0RF pregabalin [Lyrica] 200 mg Capsule 200 mg PO BID Qty: 14 0RF amoxicillin 500 mg tablet 500 mg PO BID Qty: 10 0RF olanzapine 15 mg tablet 15 mg PO BEDTIME Qty: 14 0RF Discharge Orders: Discharge Order (Routine); Ordered 07/30/24 Ordered By: Annabel Quesada Diet: Advance to usual diet Activity on Discharge: As tolerated Stand Alone Forms: Patient Portal Discharge page, Community Support Print Language: Kiswahili Care Plan Goals: Mood and Behavioral Stabilization Health Concerns: Mood and Behavioral Stabilization Plan of Treatment: Attend follow up appointments Assessment: Declines prescriptions No SI,HI,AH,VH No sx of acute arvin, psychosis Discharge Date/Time: 07/30/24 11:15
== END 2024-07-30 11:15 | disposition home or self-care (01) | DRG 751 ==
LOC: HO.ED 19:55 → HO.PM5 23:01
PROVIDERS: Clinical Nurse Specialist Psychiatric/Mental Health, Adult; Nurse Practitioner Family; Admitting Provider Registered Nurse; Emergency Provider Emergency Medicine Emergency Medical Services; Visit Provider Psychiatry & Neurology Psychiatry
DX: F29 Unspecified psychosis not due to a substance or known physiological condition (principal); A08.11 Acute gastroenteropathy due to Norwalk agent; F17.210 Nicotine dependence, cigarettes, uncomplicated; F43.10 Post-traumatic stress disorder, unspecified; Z20.822 Contact with and (suspected) exposure to COVID-19; Z71.6 Tobacco abuse counseling; Z79.51 Long term (current) use of inhaled steroids; Z79.899 Other long term (current) drug therapy
CPT/HCPCS: 0241U; 36415; 80307; 81001; 81025; 82947; 85025; 87086; 87507; 99285; J2060; J2359

== ENCOUNTER → 2024-07-21 19:54 | Outpatient (BNV) | payer BC, SELFPAY | PROVIDERS: Admitting Provider Registered Nurse; Emergency Provider Emergency Medicine Emergency Medical Services; Visit Provider Registered Nurse | DX: F29 Unspecified psychosis not due to a substance or known physiological condition (principal); F43.10 Post-traumatic stress disorder, unspecified | CPT/HCPCS: 90792 ==

== ENCOUNTER 2024-08-20 16:23 | Inpatient (IN) | payer BC, SELFPAY ==
[2024-08-20 16:34] VITALS: BP 134/107; BP 190/130; PULSE 120; PULSE 130; RESP 18; TEMP 36.7; O2SAT 99; BMI 27.5
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
[2024-08-20 17:10] LABS: Appearance Urine Cloudy; Color Urine Yellow; Glucose Urine UA Negative (Negative); Leukocyte Esterase Urine Trace (Negative); Nitrite Urine Negative (Negative); PH 5.5 (5.0-9.0); UMIC TRIGGER UACC YES; Urine Blood Negative (Negative); Urine Ketones Trace mg/dL (Negative); Urine Pregnancy NEGATIVE (NEGATIVE); Urine Protein Negative (Neg-Trace)
[2024-08-20 17:11] LABS: UPreg QC Valid YES
[2024-08-20 17:18] LABS: Amphetamine Screen Urine Not Detected (Not Detect); Barbiturates, Urine Not Detected (Not Detect); Benzodiazepines Screen Urine Not Detected (Not Detect); Buprenorphine Scr Not Detected (Not Detect); Cannabinoid Screen Urine POSITIVE (Not Detect); Cocaine Screen Urine Not Detected (Not Detect); Fentanyl, urine Not Detected (Not Detect); Methadone Screen, Urine Not Detected (Not Detect); Opiate Screen Urine Not Detected (Not Detect); Oxycodone Screen Urine Not Detected (Not Detect); Phencyclidine Screen Urine Not Detected (Not Detect)
[2024-08-20 17:19] LABS: Bacteria Urine 4+ (None Seen); Hyaline Casts Urine 0-2 /LPF (0-2); RBC Urine 0-2 /HPF (0-2); WBC Urine 0-5 /HPF (0-5)
--- NOTE | 2024-08-20 17:43 | MHC.EDTECH ---
Patient refusing labs at this time. RN aware.
--- NOTE | 2024-08-20 17:53 | PC.NURSE ---
refusing lab work, stating she has a new yarsani that prevents her from any needles in her body. refusing clonazepam - will only take her own medications.
--- NOTE | 2024-08-20 19:38 | PC.NURSE ---
patient ambulates independently in milieu asking for snacks about every ten minutes, pleasant redirectable. awaits care team assessment
--- OUTSIDE RECORDS SUMMARY | 2024-08-20 19:53 | XMS_ITS | Continuity of Care Document ---
[facility] Address [address] [place] [phone] Phone Care Team Providers Care Legal Activity Adjudicator Name Role Phone Jonathon Del Toro DO Unavailable Unavailable Advance Directives Directive Yes / No Effective Date File Name No Information Encounters Encounter Description Practice Location Reason(s) For Visit Diagnoses Date Provider Providers Copied on Encounter [facility], [address] [place] [address], [id number], [place] tel:[phone] [address] [facility] No Information Katey Holt. [address] [place] [address], [id number] , [place]. tel:[phone] Family History Family Member Type Diagnosis Age At Onset No Information Payers Payer name Insurance type Covered constitution party ID Authoriza tion(s) No Information Social History Type Description Quantity Date Captured Comments Alcohol Use Details Unknown Caffeine Use Details Unknown Tobacco Use Status No Information Smoking Status No Information Sex Female Chief Complaint And Reason For Visit No Information Reason For Referral Reason For Referral No Information History Of Present Illness Encounter Date Complaint History Of Prese nt Illness No Information Functional Status Date Functional Assessmen t No Information Instructions Date Instruction Additional Infor mation No Information Assessments Type Assessment Date No Information Patient Care Teams Name Effective Dates (start - stop) Status Members No Information
--- NOTE | 2024-08-20 20:04 | PC.NURSE ---
t/w asked client regarding medications that were current she states they are at [facility] which i believe is closed at this time.
[2024-08-20] MEDS: clonazePAM 1 MG TABLET PO (20:14)
--- NOTE | 2024-08-20 21:17 | MHC.EDTECH ---
PT REFUSING LAB WORK AT THIS TIME. RN AWARE
--- NOTE | 2024-08-20 21:28 | PC.NURSE ---
t/w reviewed claims list from pharmacy, client stated she was not on meloxicam, zyprexa or amlodipine but stated she was continued on lyrica clonazepam and baclofen. called pharmacy for more insight, will ask provider to continue, perhaps thorough list could be verified in am.
--- NOTE | 2024-08-20 23:56 | PC.NURSE ---
fell asleep in rear common area for the time being
[2024-08-21] MEDS: Pregabalin 200 MG CAPSULE PO ×2 (01:34→09:06)
[2024-08-21] MEDS: Baclofen 20 MG TABLET PO ×2 (01:42→09:06)
[2024-08-21 06:01] VITALS: RESP 18
[2024-08-21 08:49] VITALS: BP 127/90; PULSE 81; RESP 16; TEMP 36.6; O2SAT 98
[2024-08-21 09:04] LABS: MANUAL DIFF FLAG NO
[2024-08-21 09:06] LABS: Basophils Absolute Auto 0.1 X10*3/uL (0.0-0.2); Basophils Percent Auto 1.5 % (0-2); Eosinophils Absolute Auto 0.1 X10*3/uL (0.0-0.4); Eosinophils Percent Auto 3.6 % (0-4); Hemoglobin 13.4 g/dl (12.0-16.0); Lymphocytes Absolute Auto 1.3 X10*3/uL (1.2-4.9); Lymphocytes Percent Auto 39.2 % (20-40); Mean Corpuscular HGB Conc 34.4 g/dl (31.0-35.0); Mean Corpuscular Hemoglobin 30.1 pg (27.0-33.0); Mean Corpuscular Volume 87.6 fL (80.0-98.0); Mean Platelet Volume 10.4 fL (9.4-12.3); Monocytes Absolute Auto 0.4 X10*3/uL (0.1-1.2); Monocytes Percent Auto 12.7 % (2-11); Neutrophils Absolute Auto 1.4 x10*3/uL (2.0-8.3); Platelet Count 251 X10*3/uL (160-400); Red Blood Count 4.45 X10*6/uL (4.20-5.50); Red Cell Distribution Width 12.7 % (11.0-16.0); White Blood Count 3.3 X10*3/uL (4.8-10.8)
[2024-08-21] MEDS: clonazePAM 0.5 MG TABLET PO ×2 (09:06→15:36)
--- NOTE | 2024-08-21 09:09 | PC.NURSE ---
confirmed with ramone y that scripts for norvasc, meloxicam, zyprexa and nictotine were filled but not picked up by the patient. med rec has been completed according to what she is current at pharmacy. pt was at [facility] 08/11- 08/20 per CARE team notes.
[2024-08-21 09:22] LABS: Alanine Aminotransferase 21 U/L (0-31); Albumin Level 3.8 g/dL (3.5-5.0); Alkaline Phosphatase 36 U/L (39-117); Anion Gap 11 (12-20); Aspartate Amino Transferase 26 U/L (5-31); Bilirubin Total 0.5 mg/dL (0.0-1.0); Blood Urea Nitrogen 14 mg/dL (9-16); Carbon Dioxide 26 mmol/L (22-29); Chloride 110 mmol/L (96-108); Creatinine Clr Calc Pharmacy 146.3; Estimated Glomerular Filt Rate > 60; Glucose Random 75 mg/dL (60-115); Potassium 4.4 mmol/L (3.3-5.1); Sodium 143 mmol/L (135-145)
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
[2024-08-21 13:40] VITALS: BP 146/97; PULSE 76; RESP 16; TEMP 36.4; O2SAT 98
[2024-08-21] MEDS: Nicotine 21 MG PATCH.TD24 TRANSDERMA (14:17)
[2024-08-21] MEDS: Nicotine Polacrilex 2 MG GUM 4 MG BUCCAL (14:18)
[2024-08-21] MEDS: traMADoL HCL 50 MG TABLET PO (14:26)
[2024-08-21 14:27] VITALS: BMI 34.8
[2024-08-21] MEDS: Acetaminophen 325 MG TABLET 650 MG PO (15:05)
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
[2024-08-21 15:20] LABS: Alanine Aminotransferase 28 U/L (0-31); Albumin Level 4.2 g/dL (3.5-5.0); Alkaline Phosphatase 42 U/L (39-117); Anion Gap 13 (12-20); Aspartate Amino Transferase 30 U/L (5-31); Bilirubin Total 0.5 mg/dL (0.0-1.0); Blood Urea Nitrogen 12 mg/dL (9-16); Calcium 9.5 mg/dL (8.4-10.2); Carbon Dioxide 27 mmol/L (22-29); Chloride 108 mmol/L (96-108); Creatinine Clr Calc Pharmacy 140.1; Estimated Glomerular Filt Rate > 60; Glucose Fasting 89 mg/dL (60-99); Potassium 4.1 mmol/L (3.3-5.1); Sodium 144 mmol/L (135-145); Total Protein 7.8 g/dL (6.5-8.0)
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
[2024-08-21 18:56] LABS: Glucose, Whole Blood 103 mg/dL (60-115)
--- NOTE | 2024-08-21 19:14 | PC.NURSE ---
BEHAVIORAL HEALTH CLINICIAN called at 1850 d/t patient being unresponsive. Pt was making delusional statements and then put herself on the floor into the position. When Pt was told to get up she did not respond. VSS 125/76, 65, 99% RA. Respirations nonlabored, 18BPM. POC 103. Sternal rub applied, Pt continues to not respond. Pt transferred to TELE for further work-up per .
== END 2024-08-21 19:30 | disposition other institution (70) | DRG 751 ==
LOC: HO.ED 08-21 01:36 → HO.PM5 08-21 12:08
PROVIDERS: Nurse Practitioner Family; Admitting Provider Psychiatry & Neurology Psychiatry; Emergency Provider Emergency Medicine; Visit Provider Psychiatry & Neurology Psychiatry
DX: F23 Brief psychotic disorder (principal); F43.10 Post-traumatic stress disorder, unspecified; I10 Essential (primary) hypertension; Z87.891 Personal history of nicotine dependence; Z79.899 Other long term (current) drug therapy
CPT/HCPCS: 36415; 80053; 80307; 81001; 81025; 82947; 85025; 99285; S9485

== ENCOUNTER → 2024-08-21 12:07 | Outpatient (BNV) | payer BC, SELFPAY | PROVIDERS: Admitting Provider Psychiatry & Neurology Psychiatry; Emergency Provider Emergency Medicine; Visit Provider Psychiatry & Neurology Psychiatry | DX: F23 Brief psychotic disorder (principal); F43.11 Post-traumatic stress disorder, acute; I10 Essential (primary) hypertension | CPT/HCPCS: 90792 ==

== ENCOUNTER 2024-08-21 19:11 | Inpatient (IN) | payer BC, SELFPAY ==
--- NOTE | ~2024-08-21 | CT_ITS ---
CLINICAL HISTORY: syncopal episode CT head without contrast Comparison: None Findings: No intra-axial mass, midline shift, hydrocephalus, or acute hemorrhage. No significant atrophy-like change or white matter disease. There is no sinus or mastoid fluid. The orbits are unremarkable. No skull fracture. IMPRESSION: 1. No acute intracranial findings. This document has been electronically signed by: Azam Drake MD on 08/21/2024 22:16:46
--- NOTE | ~2024-08-21 | XR_ITS ---
CLINICAL HISTORY: Syncopal episode EXAM: One view chest x-ray COMPARISON: CR/SR - XR CHEST 1V - 04/26/21 16:15 EST FINDINGS: Normal cardiac, mediastinal, and hilar contours. Normal heart size. No pleural effusion or pneumothorax. Lungs are clear. No acute bone finding. IMPRESSION: 1. No acute cardiopulmonary process demonstrated. This document has been electronically signed by: Dionte Arnold MD on 08/21/2024 20:53:47
--- NOTE | 2024-08-21 19:14 | ECG_ITS ---
Test Reason : Syncopal episode Blood Pressure : */* mmHG Vent. Rate : 72 BPM Atrial Rate : 72 BPM P-R Int : 150 ms QRS Dur : 88 ms QT Int : 388 ms P-R-T Axes : 15 79 44 degrees QTcB Int : 424 ms Normal sinus rhythm Normal ECG No previous ECGs available Referred By: Amanuel Mays Electronically Signed By: DENISA MARTINEZ
--- NOTE | 2024-08-21 19:16 | PM.IMHP ---
History of Present Illness Date of Service: 08/21/24 Attending physician on admission: [facility] Chief Complaint: Syncopal episode vs pseudo-seizure Pt is a 24-year-old female with a PMH significant for HTN, nicotine dependence, PTSD, and MDD who initially presented to the emergency department yesterday on 08/20 has a section 12 coming from [facility] for bizarre and paranoid behavior. Pt was apparently there attempting to get a restraining order against her ex partner. And was noted to have disorganized and paranoid thinking. Pt was seen and evaluated in the ED where workup was negative and pt was admitted to [facility] unit for stabilization. While on the unit pt was requesting medication when she suddenly lowered herself to the floor in lay immobile on the ground. Rapid response was called and pt was found to be unresponsive to verbal or painful stimuli. Pt also noted to be closing her eyes tightly. Patient's vitals were stable and WNL. Pt then was then transferred to [facility] to be admitted to the hospital for further workup and observation of potential syncopal episode vs pseudo-seizure. Review of Systems Review of Systems: Yes Unobtainable due to mental status [facility] Medical History (Updated 08/21/24 @ 19:23 by LC Lopez) HTN (hypertension) Social History Household Members: Other Household Members Other:: lives w/ boyfriend Housing: Apartment Do you presently have visiting nurse or other home services: No Patient Tobacco Use Status: Never used Tobacco Tobacco use type: Cigarette e-Cigarette/Vaping Use: Never Used Second Hand Smoke Exposure: Yes Substance Use Type: Marijuana Advance Directives: No Advance Directives Information Provided: No service: No Sexual orientation: Unable to collect Meds Allergies Allergy/AdvReac Type Severity Reaction Status Date / Time No Known Allergies Allergy Verified 08/20/24 16:35 Active Medications: Current Medications Acetaminophen (Acetaminophen 325 Mg Tablet) 650 mg PO Q6H PRN PRN Reason: Pain, Mild 1-3,fever,headache Calcium Carbonate (Calcium Carbonate 750 Mg Tab.Chew) 750 mg PO Q4H PRN PRN Reason: Heartburn Enoxaparin Sodium (Enoxaparin Sodium 40 Mg/0.4 Ml Syringe) 40 mg SUBCUT Q24H PATEL Magnesium Hydroxide (Milk Of Magnesia 30 Ml Oral.Susp) 30 ml PO DAILY PRN PRN Reason: Constipation Melatonin (Melatonin 3 Mg Tablet) 6 mg PO BEDTIME PRN PRN Reason: Insomnia Ondansetron HCl (Ondansetron Hcl 4 Mg/2 Ml Vial) 4 mg IVPUSH Q8H PRN PRN Reason: Nausea and Vomiting Sodium Chloride (0.9 % Sodium Chloride Flush 3 Ml Syringe) 3 ml IVFLUSH QSHIFT PATEL Physical Exam Vital Signs and Narrative: General: Obtunded, not responding to verbal or painful stimuli. Resp: CTA bilaterally CVS: S1, S2, RRR GI: +BS, NT, no distention Skin: Warm, dry Extremities: No edema Results Labs 08/21/24 19:54 08/21/24 19:54 Assessment and Plan (1) Unresponsiveness: Status: Acute Plan Pt is a 24-year-old female with a PMH significant for HTN, nicotine dependence, PTSD, and MDD who initially presented to the emergency department yesterday on 08/20 has a section 12 coming from [facility] for bizarre and paranoid behavior. In the ED workup was negative and pt was admitted to [facility] unit for stabilization. While on the unit pt was requesting medication when she suddenly lowered herself to the floor in lay immobile on the ground. Unresponsiveness Rapid response called after pt lowered herself to the floor and lay immobile, not responsive to verbal or painful stimuli Vitals stable and WNL, POC 103 Etiology unclear: Syncopal episode vs pseudo-seizure Will check CT of head, CXR, EKG Will check labs: CMP, CBC, TSH, lactic acid, magnesium, and troponin Monitor on telemetry HTN Continue amlodipine Mood disorder Continue home meds Psychiatry consult Full Code Attending:?Dr. Franco DVT Prophylaxis: Lovenox Pt will require a hospitalization of at least two nights for treatment of?episode of unresponsiveness while on psychiatric unit of unclear etiology: Concerning for pseudo-seizure vs syncopal episode. Quality Stroke Does the patient have a stroke diagnosis?: No VTE Prior VTE?: No VTE Risk Level:: Medical - moderate - high VTE Device Contraindication: Treatment Not Indicated VTE Drug Contraindication: N/A - Med Ordered
--- OUTSIDE RECORDS SUMMARY | 2024-08-21 19:36 | XMS_ITS | Continuity of Care Document ---
Author Organization [facility] Address [address] [place] [phone] Phone Care Team Providers Care Automation Machine Builder Name Role Phone Jonathon Del Toro DO Unavailable Unavailable Advance Directives Directive Yes / No Effective Date File Name No Information Encounters Encounter Description Practice Location Reason(s) For Visit Diagnoses Date Provider Providers Copied on Encounter [facility], [address] [place] [address], [id number], [place] tel:[phone] [facility] No Information Katey Holt. [address] [place] [address], [id number] , [place]. tel:[phone] Family History Family Member Type Diagnosis Age [...]
--- OUTSIDE RECORDS SUMMARY | 2024-08-21 19:36 | XMS_ITS | Clinical Summary ---
Author Organization [facility] it Address [address] [place] [address] Care Team Providers Care Component Inspector Name Role Phone Chasidy Bernal MD Primary Care Provider Unava ilable Medical History Medical History Date Comments Bipolar affective disorder (CMS/HCC) 10/07/2018 DX:Bipolar affective disorder (HCC) Family History Medical History Relation Name Comments Other: pulmonary embolus Father fat her in mid 50also paternal grandmother Cataracts Maternal Grandmother Diabetes Mother's side Blindness Neg Hx Breast cancer Neg Hx Colon cancer Neg Hx Glaucoma Neg Hx Macular degeneration Neg Hx Ovarian cancer Neg Hx Prostate cancer Neg Hx Strabismus Neg Hx Relation Name Status Comments Father Maternal Grandmother Mother's side Social History Tobacco Use Types Packs/Day Years Used Date Smoking Tobacco: Never Smokeless Tobacco: Never Alcohol Use Standard Drinks/Week Comments No 0 (1 standard drink = 0.6 oz pur e alcohol) Comments Unknown Sex and Gender Information Value Date Recorded Sex Assigned at Not on file Legal Sex Female 12:04 AM EST Gender Identity Not on file Sexual Orientation Not on file Obstetrics History Plan of Treatment Health Maintenance Due Date Last Done Comments DTaP,Tdap,and Td Vaccines (5 - Td or Tdap) 06/06/2020 06/06/2010, 03/14/2004, 01/13/2004, Additional history exists Cervical Cancer Screening: Pap Smear 07/02/2021 07/02/2018, 07/02/2018 COVID-19 Vaccine ( season) 2024 Influenza Vaccine (#1) 2024 HIB Vaccines Aged Out 01/13/2004, 1998 No lo nger eligible based on patient's age to complete this topic Hepatitis B Vaccines Completed 01/13/2004, 1998, 1998 MMR Vaccines Completed 03/14/2004, 01/13/2004 IPV Vaccines Completed 06/06/2010, 10/2003, 01/13/2004, Additional history exists Hepatitis A Vaccines Completed 08/20/2014, 06/06/20 10 Meningococcal ACWY Vaccine Completed 08/20/2014, HPV Vaccines Completed 12/22/2014, 08/08, 06/06/2010 Meningococcal B Vacine Aged Out No lo nger eligible based on patient's age to complete this topic Pneumococcal Vaccine: Pediatrics (0 to 5 Years) and At-Risk Patients (6 to 64 Years) Aged Out No longer eligible based on patient's age to complete this topic RSV Immunization Patients Under 20 months Aged Out No longer eligible based on patient's age to complete this topic Varicella Vaccines Aged Out No longer eligible based on patient's age to complete this topic Procedures Procedure Name Priority Date/Time Associated Diagnosis Comments PAP SMEAR Routine 07/02/2018 from Last 3 Months or Most Recently Relevant to Health Maintenance Results * Pap smear (07/02/2018) 07/02/2018 Narrative HISTORICAL TESTING LAB RESULTING AGENCY - 07/09/2018 8:08 AM EST [id number] THINPREP PAP, IMAGED: LOW-GRADE SQUAMOUS INTRAEPITHELIAL LESION (LSIL) . JENNY ACEVEDO , JEANNIE(ASCP) (CASE SCREENED 07 04 2018) DENNIS CHARLES M.D. , PATHOLOGIST (CASE ELECTRONICALLY SIGNED 07 07 2018) ADEQUACY: SATISFACTORY ENDOCERVICAL/TRANSFORMATION ZONE COMPONENT PRESENT. SOURCE: THINPREP PAP HPV IF ASCUS, CERVICAL, IMAGED CLINICAL INFORMATION: HPV IF DIAGNOSIS OF ASCUS. LMP 06/03/18, Z12.4 Yaima Tian CNM LAB CYTOLOGY ORDERABLES Final R esult HISTORICAL TESTING LAB RESULTING AGENCY from Last 3 Months or Most Recently Relevant to Health Maintenance Care Teams Component Inspector Relationship Specialty Start Date End Date Chasidy Bernal MD PCP - General Internal Medicine 09/11/16
[2024-08-21 20:03] LABS: MANUAL DIFF FLAG NO
[2024-08-21 20:04] LABS: Basophils Absolute Auto 0.1 X10*3/uL (0.0-0.2); Basophils Percent Auto 1.6 % (0-2); Eosinophils Absolute Auto 0.1 X10*3/uL (0.0-0.4); Eosinophils Percent Auto 2.7 % (0-4); Hematocrit 41.4 % (37.0-47.0); Imm Gran Abs Auto 0.01 X10*3/uL (0.00-0.03); Imm Gran Pct Auto 0.2 % (0.0-0.4); Lymphocytes Absolute Auto 1.9 X10*3/uL (1.2-4.9); Lymphocytes Percent Auto 39.2 % (20-40); Mean Corpuscular HGB Conc 33.8 g/dl (31.0-35.0); Mean Corpuscular Hemoglobin 29.6 pg (27.0-33.0); Mean Corpuscular Volume 87.5 fL (80.0-98.0); Mean Platelet Volume 10.2 fL (9.4-12.3); Monocytes Absolute Auto 0.5 X10*3/uL (0.1-1.2); Monocytes Percent Auto 10.1 % (2-11); Neutrophils Absolute Auto 2.3 x10*3/uL (2.0-8.3); Neutrophils Percent Auto 46.2 % (45-73); Platelet Count 279 X10*3/uL (160-400); Red Blood Count 4.73 X10*6/uL (4.20-5.50); Red Cell Distribution Width 12.7 % (11.0-16.0); White Blood Count 4.9 X10*3/uL (4.8-10.8)
[2024-08-21] MEDS: Enoxaparin Sodium 40 MG/0.4 ML SYRINGE SUBCUT (20:09)
[2024-08-21] MEDS: ondansetron HCL 4 MG/2 ML VIAL IVPUSH (20:09)
[2024-08-21 20:18] LABS: Lactic Acid 1.5 mmol/L (0.5-2.0)
--- NOTE | 2024-08-21 20:23 | PHA.MEDREC ---
Addendum entered by Rm Almeida [facility] 08/21/24 20:41: Med rec checked by [facility] Original Note: Pharmacy Consult ? Medication Reconciliation Patient transferred from , confirmed med rec with claims/medical record
[2024-08-21 20:24] LABS: Alanine Aminotransferase 28 U/L (0-31); Albumin Level 4.2 g/dL (3.5-5.0); Alkaline Phosphatase 41 U/L (39-117); Anion Gap 13 (12-20); Aspartate Amino Transferase 30 U/L (5-31); Bilirubin Total 0.5 mg/dL (0.0-1.0); Blood Urea Nitrogen 12 mg/dL (9-16); Calcium 9.4 mg/dL (8.4-10.2); Carbon Dioxide 27 mmol/L (22-29); Chloride 105 mmol/L (96-108); Estimated Glomerular Filt Rate > 60; Glucose Random 78 mg/dL (60-115); Magnesium 1.9 mg/dL (1.6-2.6); Potassium 3.8 mmol/L (3.3-5.1); Sodium 141 mmol/L (135-145); Total Protein 7.7 g/dL (6.5-8.0)
[2024-08-21 20:26] LABS: Troponin-I High Sensitivity < 2.7 ng/L (<3.5-17.0)
[2024-08-21 20:39] LABS: Thyroid Stimulating Hormone 1.18 uIU/mL (0.32-4.0)
[2024-08-21] MEDS: Baclofen 20 MG TABLET PO (20:54)
[2024-08-21] MEDS: Ketorolac Tromethamine 15 MG/ML VIAL IVPUSH (20:55)
[2024-08-21] MEDS: risperiDONE 1 MG TABLET PO (20:56)
[2024-08-21] MEDS: hydrOXYzine HCL 25 MG TABLET PO (20:56)
[2024-08-21] MEDS: Pregabalin 200 MG CAPSULE PO (20:56)
[2024-08-21] MEDS: clonazePAM 0.5 MG TABLET PO (20:57)
[2024-08-21] MEDS: oxyCODONE HCl Immed Release 5 MG TABLET PO (21:53)
[2024-08-21] MEDS: Melatonin 3 MG TABLET 6 MG PO (23:35)
[2024-08-22] VITALS: BP 125/85; PULSE 68; RESP 18; TEMP 36.1; O2SAT 99
[2024-08-22] MEDS: Ketorolac Tromethamine 15 MG/ML VIAL IVPUSH (03:30)
[2024-08-22 04:00] VITALS: BP 116/66; PULSE 66; RESP 18; TEMP 36.1; O2SAT 98
[2024-08-22 04:30] LABS: HIV AB/AG Nonreactive (Nonreactive); HIV Num 1 0.12 S/CO (0.00-0.99)
[2024-08-22 06:00] VITALS: BMI 28.2
[2024-08-22 07:17] LABS: Estimated Average Glucose 97 mg/dL; Hemoglobin A1C 105.5895 umol/L; Total Hemoglobin (HGBA1C) 3352.1532 umol/L
[2024-08-22 07:26] LABS: Cholesterol 144 mg/dL (<200); HDL Cholesterol 36 mg/dL (>40); LDL Cholesterol Calculated 75 mg/dL (<100); Triglycerides 167 mg/dL (<150)
[2024-08-22 07:39] VITALS: BP 139/85; PULSE 95; RESP 18; TEMP 36.6; O2SAT 100
[2024-08-22 07:41] LABS: TSH reflex Free T4 2.15 uIU/mL (0.32-4.0)
[2024-08-22] MEDS: Pregabalin 200 MG CAPSULE PO (07:59)
[2024-08-22] MEDS: 0.9 % Sodium Chloride Flush 3 ML SYRINGE IVFLUSH (07:59)
[2024-08-22] MEDS: amLODIPine Besylate 5 MG TABLET PO (08:00)
[2024-08-22] MEDS: oxyCODONE HCl Immed Release 5 MG TABLET PO (08:00)
[2024-08-22] MEDS: Baclofen 20 MG TABLET PO (08:00)
[2024-08-22] MEDS: clonazePAM 0.5 MG TABLET PO (08:00)
[2024-08-22] MEDS: risperiDONE 1 MG TABLET PO (08:00)
[2024-08-22] MEDS: ondansetron HCL 4 MG/2 ML VIAL IVPUSH (10:11)
--- NOTE | 2024-08-22 10:38 | MHC.CARE ---
Pt continues to meet the criteria for IPLOC. Section 12a in chart. Provider in agreement.
[2024-08-22 12:00] VITALS: BP 123/76; PULSE 97; RESP 18; TEMP 36.4; O2SAT 99
[2024-08-22] MEDS: hydrOXYzine HCL 25 MG TABLET PO (12:14)
--- NOTE | 2024-08-22 12:25 | P.PNIM_ITS ---
Subjective Subjective Date of Service: 08/22/24 Interval History: f/u on an episode of unreponsiveness yesterday while on the Psych unit, patient said it was d/t a reaction to tramadol that made her sick, vitals and all evaluation were unremarkable at that time, she was brought to [facility] and has been on ok since. Physical Exam 2 Vital Signs: Vital Signs: Last Vital Signs Temp 97.9 F 08/22/24 07:39 Pulse 95 08/22/24 07:39 Resp 18 08/22/24 07:39 BP 139/85 08/22/24 07:39 Pulse Ox 100 08/22/24 07:39 O2 Del Method Room Air 08/22/24 07:39 BMI result Body Mass Index 28.2 Const: Other: General: AO X 3, no acute distress Resp: CTA bilateral CVS: S1,S2,RRR GI: +BS, NT, no distention Skin: No rash Neuro: motor grossly intact Psych: appropriate affect Objective Data Active Medications Acetaminophen (Acetaminophen 325 Mg Tablet) 650 mg PO Q6H PRN PRN Reason: Pain, Mild 1-3,fever,headache Al Hydroxide/Mg Hydroxide (Magnesium Hydrox/Alum Hydrox 30 Ml Oral.Susp) 30 ml PO Q6H PRN PRN Reason: Heartburn/Nausea Amlodipine Besylate (Amlodipine Besylate 5 Mg Tablet) 5 mg PO DAILY ON LICENSE OF [facility]; Protocol Last Admin: 08/22/24 08:00 Dose: 5 mg Documented By: ASIA Baclofen (Baclofen 20 Mg Tablet) 20 mg PO BID ON LICENSE OF [facility] Last Admin: 08/22/24 08:00 Dose: 20 mg Documented By: ASIA Calcium Carbonate (Calcium Carbonate 750 Mg Tab.Chew) 750 mg PO Q4H PRN PRN Reason: Heartburn Clonazepam (Clonazepam 0.5 Mg Tablet) 0.5 mg PO BID ON LICENSE OF [facility] Last Admin: 08/22/24 08:00 Dose: 0.5 mg Documented By: ASIA Enoxaparin Sodium (Enoxaparin Sodium 40 Mg/0.4 Ml Syringe) 40 mg SUBCUT Q24H ON LICENSE OF [facility] Last Admin: 08/21/24 20:09 Dose: 40 mg Documented By: ARACELI Hydroxyzine HCl (Hydroxyzine Hcl 25 Mg Tablet) 25 mg PO Q6H PRN PRN Reason: mild anxiety Last Admin: 08/22/24 12:14 Dose: 25 mg Documented By: ASIA Ketorolac Tromethamine (Ketorolac Tromethamine 15 Mg/Ml Vial) 15 mg IVPUSH Q6H PRN PRN Reason: Pain, Moderate(Pain Scale 4-6) Last Admin: 08/22/24 03:30 Dose: 15 mg Documented By: ARACELI Magnesium Hydroxide (Milk Of Magnesia 30 Ml Oral.Susp) 30 ml PO DAILY PRN PRN Reason: Constipation Melatonin (Melatonin 3 Mg Tablet) 6 mg PO BEDTIME PRN PRN Reason: Insomnia Last Admin: 08/21/24 23:35 Dose: 6 mg Documented By: ARACELI Nicotine (Nicotine 21 Mg Patch.Td24) 21 mg TRANSDERMA DAILY PRN PRN Reason: smoking cessation Nicotine Polacrilex (Nicotine Polacrilex 2 Mg Gum) 4 mg BUCCAL Q2H PRN PRN Reason: Nicotine Cravings Olanzapine (Olanzapine 5 Mg Tablet) 5 mg PO TID PRN PRN Reason: agitation Ondansetron HCl (Ondansetron Hcl 4 Mg/2 Ml Vial) 4 mg IVPUSH Q8H PRN PRN Reason: Nausea and Vomiting Last Admin: 08/22/24 10:11 Dose: 4 mg Documented By: ASIA Ondansetron HCl (Ondansetron Odt 8 Mg Tab.Rapdis) 8 mg TRANSLINGU Q12H PRN PRN Reason: Nausea and Vomiting Pregabalin (Pregabalin 200 Mg Capsule) 200 mg PO BID ON LICENSE OF [facility] Last Admin: 08/22/24 07:59 Dose: 200 mg Documented By: ASIA Risperidone (Risperidone 1 Mg Tablet) 1 mg PO BID ON LICENSE OF [facility] Last Admin: 08/22/24 08:00 Dose: 1 mg Documented By: ASIA Sodium Chloride (0.9 % Sodium Chloride Flush 3 Ml Syringe) 3 ml IVFLUSH QSHIFT ON LICENSE OF [facility] Last Admin: 08/22/24 07:59 Dose: 3 ml Documented By: ASIA Tramadol HCl (Tramadol Hcl 50 Mg Tablet) 50 mg PO Q6H PRN PRN Reason: back pain Trazodone HCl (Trazodone Hcl 50 Mg Tablet) 50 mg PO BEDTIME MRX1 PRN PRN Reason: Insomnia Labs 08/21/24 19:54 08/21/24 19:54 Labs: Laboratory Results - last 24 hr 08/21/24 08/22/24 19:54 06:54 MCV 87.5 MCH 29.6 MCHC 33.8 RDW 12.7 Plt Count 279 MPV 10.2 Immature Gran % (Auto) 0.2 Neut % (Auto) 46.2 Lymph % (Auto) 39.2 [place] % (Auto) 10.1 Eos % (Auto) 2.7 Baso % (Auto) 1.6 Lymph # (Auto) 1.9 [place] # (Auto) 0.5 Eos # (Auto) 0.1 Baso # (Auto) 0.1 Abs Immat Gran (auto) 0.01 Absolute Neuts (auto) 2.3 Absolute Nucleated RBC 0.000 Nucleated RBC % (auto) 0.0 Anion Gap 13 Estim Creat Clear Calc TNP Estimated GFR > 60 Random Glucose 78 Estimat Average Glucose 97 Hemoglobin A1c % 5.0 Lactic Acid 1.5 Calcium 9.4 Magnesium 1.9 Total Bilirubin 0.5 AST 30 ALT 28 Alkaline Phosphatase 41 Total Protein 7.7 Albumin 4.2 Triglycerides 167 H Cholesterol 144 LDL Cholesterol, Calc 75 HDL Cholesterol 36 L TSH 1.18 2.15 HIV 1&2 Ab/P24 Ag 4thGn Nonreactive Assessment and Plan (1) PTSD (post-traumatic stress disorder): Status: Acute (2) Acute psychosis: Status: Acute (3) Unresponsiveness: Status: Acute Plan Pt is a 24-year-old female with a PMH significant for HTN, nicotine dependence, PTSD, and MDD who initially presented to the emergency department yesterday on 08/20 has a section 12 coming from [facility] for bizarre and paranoid behavior. In the ED workup was negative and pt was admitted to [facility] unit for stabilization. While on the unit pt was requesting medication when she suddenly lowered herself to the floor in lay immobile on the ground. Unresponsiveness. 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 There was no evidence of seizure activity. She was hemodynamically stable. sh'e saying that it was a reaction from tramadol CT of head, CXR, EKG--unremarkable. CMP, CBC, TSH, lactic acid, magnesium, and troponin Monitored on telemetry without any cardiac event. Stop Tramadol She remains Psychiatrically unwell and should return to inpatient Psych. Should this episode happens again, she may need further testing and perhaps neuro eval HTN Continue amlodipine Mood disorder Continue home meds Psychiatry consult Full Code Attending:?Dr. Franco DVT Prophylaxis: Lovenox Pt will require a hospitalization of at least two nights for treatment of?episode of unresponsiveness while on psychiatric unit of unclear etiology: Concerning for pseudo-seizure vs syncopal episode. Quality Stroke Does the patient have a stroke diagnosis?: No VTE Prior VTE?: No VTE Risk Level:: Medical - moderate - high VTE Device Contraindication: Treatment Not Indicated VTE Drug Contraindication: N/A - Med Ordered
--- NOTE | 2024-08-22 13:20 | P.DS_ITS ---
DS: Providers Provider Date of Service: 08/22/24 Date of admission: 08/21/24 19:11 Date of discharge: 08/22/24 Primary care physician: Unknown Physician Consults: 08/21/24 20:18 Consult to Psychiatry Routine Consulting Provider: [facility] Psych Covering Reason for consultation: Transfer from for pseudo-seizure 08/22/24 08:03 In CARE Team Crisis Consult Routine Comment: Reason for consultation: Ready for discharge DS: Diagnosis Discharge Diagnosis (1) PTSD (post-traumatic stress disorder): Status: Acute (2) Acute psychosis: Status: Acute (3) Unresponsiveness: Status: Acute DS: Summary Hospital Course Hospital Course: Pt is a 24-year-old female with a PMH significant for HTN, nicotine dependence, PTSD, and MDD who initially presented to the emergency department yesterday on 08/20 has a section 12 coming from [facility] for bizarre and paranoid behavior. In the ED workup was negative and pt was admitted to Psychiatric unit for stabilization. While on the unit pt was requesting medication when she suddenly lowered herself to the floor in lay immobile on the ground. Unresponsiveness. 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 There was no evidence of seizure activity. She was hemodynamically stable. sh'e saying that it was a reaction from tramadol CT of head, CXR, EKG--unremarkable. CMP, CBC, TSH, lactic acid, magnesium, and troponin Monitored on telemetry without any cardiac event. Stop Tramadol She remains Psychiatrically unwell and should return to inpatient Psych. Should this episode happens again, she may need further testing and perhaps neuro eval HTN Continue amlodipine Mood disorder Continue home meds Time Attestation Discharge Coordination Time (in mins): 35 Quality: Safe Use of Opioids Does Pt have an Active Cancer Diagnosis on the Problem List?: No Quality: Stroke Does the patient have a stroke diagnosis?: No Physical Exam Vital Signs: Vital Signs: Last Vital Signs Temp 97.5 F 08/22/24 12:00 Pulse 97 08/22/24 12:00 Resp 18 08/22/24 12:00 BP 123/76 08/22/24 12:00 Pulse Ox 99 08/22/24 12:00 O2 Del Method Room Air 08/22/24 12:00 BMI result Body Mass Index 28.2 DS: Data Data Completed and Pending Labs on day of discharge: Laboratory Results - last 24 hr 08/21/24 08/22/24 19:54 06:54 WBC 4.9 RBC 4.73 Hgb 14.0 Hct 41.4 MCV 87.5 MCH 29.6 MCHC 33.8 RDW 12.7 Plt Count 279 MPV 10.2 Immature Gran % (Auto) 0.2 Neut % (Auto) 46.2 Lymph % (Auto) 39.2 [place] % (Auto) 10.1 Eos % (Auto) 2.7 Baso % (Auto) 1.6 Lymph # (Auto) 1.9 [place] # (Auto) 0.5 Eos # (Auto) 0.1 Baso # (Auto) 0.1 Abs Immat Gran (auto) 0.01 Absolute Neuts (auto) 2.3 Absolute Nucleated RBC 0.000 Nucleated RBC % (auto) 0.0 Sodium 141 Potassium 3.8 Chloride 105 Carbon Dioxide 27 Anion Gap 13 BUN 12 Creatinine 0.68 Estim Creat Clear Calc TNP Estimated GFR > 60 Random Glucose 78 Estimat Average Glucose 97 Hemoglobin A1c % 5.0 Lactic Acid 1.5 Calcium 9.4 Magnesium 1.9 Total Bilirubin 0.5 AST 30 ALT 28 Alkaline Phosphatase 41 Troponin I High Sens < 2.7 Total Protein 7.7 Albumin 4.2 Triglycerides 167 H Cholesterol 144 LDL Cholesterol, Calc 75 HDL Cholesterol 36 L TSH 1.18 2.15 HIV 1&2 Ab/P24 Ag 4thGn Nonreactive Discharge Plan Discharge Anticipated Discharge Date/Time: 08/22/24 13:15 Patient Disposition: Xfer Psychiatric Hosp Discharge Diagnosis: Episode of unresponsiveness Referrals: Physician,Unknown J [Primary Care Provider] - 1 Week Discharge Medications: Continued acetaminophen 325 mg Tablet 650 mg PO Q6H PRN (Reason: Headache/Pain, Scale 1-10) Qty: 0 0RF nicotine (polacrilex) 2 mg Gum 4 mg buccal Q2H PRN (Reason: Nicotine Cravings) Qty: 0 0RF amlodipine 5 mg Tablet 5 mg PO DAILY Qty: 0 0RF Protocol: Hold for SBP< HOLD for SBP < : 90 baclofen 20 mg Tablet 20 mg PO BID Qty: 0 0RF nicotine 21 mg/24 hr Patch 24 Hour 21 mg transdermal DAILY PRN (Reason: smoking cessation) Qty: 0 0RF clonazepam 0.5 mg Tablet 0.5 mg PO BID Qty: 0 0RF olanzapine 5 mg Tablet 5 mg PO TID PRN (Reason: agitation) Qty: 0 0RF risperidone 1 mg Tablet 1 mg PO BID Qty: 0 0RF pregabalin [Lyrica] 200 mg Capsule 200 mg PO BID Qty: 0 0RF Discontinued tramadol 50 mg Tablet 50 mg PO Q6H PRN (Reason: back pain) Qty: 0 0RF Discharge Orders: Discharge Order (Routine); Ordered 08/21/24 Ordered By: Amanuel Mays Diet: Advance to usual diet Activity on Discharge: As tolerated Stand Alone Forms: Patient Portal Discharge page Print Language: Prydeinig Care Plan Goals: inpatient Psych treatment Health Concerns: psychosis
[2024-08-24 03:19] LABS: Prolactin 10.7 ng/mL
== END 2024-08-22 13:51 | DRG 204 ==
PROVIDERS: Student in an Organized Health Care Education/Training Program; Admitting Provider Internal Medicine; Visit Provider Internal Medicine
DX: R55 Syncope and collapse (principal); F39 Unspecified mood [affective] disorder; I10 Essential (primary) hypertension; Z87.891 Personal history of nicotine dependence; Z79.899 Other long term (current) drug therapy
CPT/HCPCS: 36415; 70450; 71045; 80053; 80061; 83036; 83605; 83735; 84146; 84443; 84484; 85025; 87389; 93005; J1650; J1885; J2405; S9485

== ENCOUNTER 2024-08-21 19:11 | Outpatient (BNV) | payer BC, SELFPAY | END 2024-08-21 20:10 | PROVIDERS: Admitting Provider Internal Medicine; Visit Provider Radiology Diagnostic Radiology | DX: R55 Syncope and collapse (principal) | CPT/HCPCS: 70450; 71045 ==

== ENCOUNTER 2024-08-21 19:11 | Outpatient (BNV) | payer BC, SELFPAY | END 2024-08-21 19:14 | PROVIDERS: Admitting Provider Internal Medicine; Visit Provider Internal Medicine | DX: R55 Syncope and collapse (principal) | CPT/HCPCS: 93010 ==

== ENCOUNTER → 2024-08-21 19:11 | Outpatient (BNV) | payer BC, SELFPAY | PROVIDERS: Admitting Provider Internal Medicine; Visit Provider Student in an Organized Health Care Education/Training Program | DX: F43.10 Post-traumatic stress disorder, unspecified (principal); F23 Brief psychotic disorder; R41.89 Other symptoms and signs involving cognitive functions and awareness | CPT/HCPCS: 99223; 99239 ==

== ENCOUNTER 2024-08-22 13:53 | Inpatient (IN) | payer BC, SELFPAY ==
--- NOTE | ~2024-08-22 | XR_ITS ---
EXAMINATION: XR ABDOMEN 1 VIEW (KUB) HISTORY: constipation COMPARISON: There are no prior studies for comparison. FINDINGS: Two supine views of the abdomen are submitted. The bowel gas pattern is unremarkable, without evidence of mechanical obstruction. There is a small amount of stool throughout the colon. Multiple phleboliths are noted in the pelvis. There are no abnormal soft tissue masses. The bones are intact. XR/XR KUB IMPRESSION: Small amount of stool in the colon. Electronically signed by: Akhil Jamison MD 08/25/2024 01:09 PM EDT
--- OUTSIDE RECORDS SUMMARY | 2024-08-22 13:56 | XMS_ITS | Continuity of Care Document ---
Author Organization [facility] Address [address] [place] [phone] Phone Care Team Providers Care Production Operator Name Role Phone Jonathon Del Toro DO Unavailable Unavailable Advance Directives Directive Yes / No Effective Date File Name No Information Encounters Encounter Description Practice Location Reason(s) For Visit Diagnoses Date Provider Providers Copied on Encounter [facility] [place], [address] [place] [address], [id number], [place] tel:[phone] [facility] No Information Katey Holt. [address] [place] [address], [id number] , [place]. tel:[phone] Family History Family Member Type Diagnosis Age At Onset No Information Payers Payer name Insurance type Covered libertarian ID Authoriza tion(s) No Information Social History [...]
[2024-08-22 14:13] VITALS: BP 159/89; PULSE 105; RESP 18; TEMP 36.6; O2SAT 98; BMI 28.2
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
[2024-08-22] MEDS: Amphetamine Mixed Salts 20 MG TABLET PO (15:01)
[2024-08-22] MEDS: guanFACINE HCl ER 1 MG TAB.ER.24H 3 MG PO (15:08)
[2024-08-22 15:45] LABS: Alanine Aminotransferase 20 U/L (0-31); Albumin Level 3.9 g/dL (3.5-5.0); Anion Gap 11 (12-20); Aspartate Amino Transferase 26 U/L (5-31); Bilirubin Total 0.6 mg/dL (0.0-1.0); Blood Urea Nitrogen 10 mg/dL (9-16); Calcium 9.2 mg/dL (8.4-10.2); Carbon Dioxide 27 mmol/L (22-29); Chloride 108 mmol/L (96-108); Creatinine Clr Calc Pharmacy 124.9; Estimated Glomerular Filt Rate > 60; Glucose Fasting 80 mg/dL (60-99); Potassium 3.9 mmol/L (3.3-5.1); Sodium 142 mmol/L (135-145); Total Protein 7.1 g/dL (6.5-8.0)
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
[2024-08-22 15:59] LABS: Alkaline Phosphatase 34 U/L (39-117)
[2024-08-22] MEDS: clonazePAM 0.5 MG TABLET PO ×2 (18:04→22:36)
[2024-08-22 19:53] VITALS: RESP 16
[2024-08-22] MEDS: Baclofen 20 MG TABLET PO (20:47)
[2024-08-22] MEDS: Pregabalin 200 MG CAPSULE PO (20:50)
[2024-08-23 07:56] VITALS: BP 134/65; PULSE 104; RESP 16; O2SAT 99
[2024-08-23] MEDS: amLODIPine Besylate 5 MG TABLET PO (08:06)
[2024-08-23 08:07] LABS: Cholesterol 157 mg/dL (<200); HDL Cholesterol 41 mg/dL (>40); LDL Cholesterol Calculated 88 mg/dL (<100); Triglycerides 143 mg/dL (<150)
[2024-08-23] MEDS: guanFACINE HCl ER 1 MG TAB.ER.24H 3 MG PO (08:07)
[2024-08-23] MEDS: Baclofen 20 MG TABLET PO ×2 (08:07→20:23)
[2024-08-23] MEDS: Pregabalin 200 MG CAPSULE PO ×2 (08:07→20:22)
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
[2024-08-23] MEDS: Amphetamine Mixed Salts 20 MG TABLET PO (12:20)
[2024-08-23] MEDS: clonazePAM 0.5 MG TABLET PO ×2 (13:05→19:14)
[2024-08-23] MEDS: hydrOXYzine HCL 25 MG TABLET PO (14:54)
[2024-08-23 20:00] VITALS: BP 113/60; PULSE 78; RESP 16; TEMP 36.6; O2SAT 100
--- NOTE | 2024-08-23 23:24 | PC.NURSE ---
Pt refused HS Risperidone and zyprexa at 2100.
[2024-08-24] MEDS: clonazePAM 0.5 MG TABLET PO ×2 (02:53→14:02)
[2024-08-24] MEDS: OLANZapine 5 MG TABLET PO ×2 (02:54→23:33)
[2024-08-24 08:00] VITALS: BP 116/67; PULSE 77; RESP 16; TEMP 36.4; O2SAT 98
[2024-08-24] MEDS: guanFACINE HCl ER 1 MG TAB.ER.24H 3 MG PO (08:16)
[2024-08-24] MEDS: Amphetamine Mixed Salts 20 MG TABLET PO ×2 (08:17→12:07)
[2024-08-24] MEDS: Pregabalin 200 MG CAPSULE PO ×2 (08:17→20:17)
[2024-08-24] MEDS: Baclofen 20 MG TABLET PO ×2 (08:17→20:16)
[2024-08-24] MEDS: amLODIPine Besylate 5 MG TABLET PO (08:17)
[2024-08-24] MEDS: Milk of Magnesia 30 ML ORAL.SUSP PO (10:30)
[2024-08-24 11:50] VITALS: BP 132/72; PULSE 89
[2024-08-24] MEDS: Magnesium Citrate 300 ML SOLUTION PO (12:07)
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
[2024-08-24] MEDS: Cocoa Butter/Zinc Oxide SUPP.RECT 1 SUPP PR (13:58)
[2024-08-24] MEDS: hydrOXYzine HCL 25 MG TABLET PO (16:37)
[2024-08-24 20:00] VITALS: BP 141/88; PULSE 96; TEMP 36.4; O2SAT 99
[2024-08-24] MEDS: Mineral OiL enema 133 ML ENEMA PR (22:18)
[2024-08-25 08:00] VITALS: BP 106/63; PULSE 84; TEMP 36.1; O2SAT 99
[2024-08-25] MEDS: guanFACINE HCl ER 1 MG TAB.ER.24H 3 MG PO (08:28)
[2024-08-25] MEDS: amLODIPine Besylate 5 MG TABLET PO (08:28)
[2024-08-25] MEDS: Baclofen 20 MG TABLET PO ×2 (08:29→20:48)
[2024-08-25] MEDS: Amphetamine Mixed Salts 20 MG TABLET PO ×2 (08:29→12:19)
[2024-08-25] MEDS: Pregabalin 200 MG CAPSULE PO ×2 (08:29→20:48)
[2024-08-25] MEDS: Acetaminophen 325 MG TABLET 650 MG PO (08:53)
[2024-08-25] MEDS: Dextroamphetamine/Amphetamine XR 10 MG CAP.ER.24H PO (14:17)
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
[2024-08-25] MEDS: clonazePAM 0.5 MG TABLET PO (18:23)
[2024-08-25 20:00] VITALS: BP 137/74; PULSE 106; TEMP 36.3; O2SAT 99
--- NOTE | 2024-08-25 22:53 | PC.NURSE ---
Patient refused scheduled respiridone and zyprexa at approximately 2130 this evening.
--- NOTE | 2024-08-25 23:04 | PC.NURSE ---
Patient requested this policy writer document self inflicted wounds that she reports were present when she was admitted. On the anterior surface of her left thigh, she has two superficial scratches that are approximately 5 inches, from the left to the right. Above each of these, she has a superficial scratch shaped like an arrow, approximately 1 inch long, pointing down to her feet. This is connected to a roughly circular scratch above the arrow.
[2024-08-26] MEDS: clonazePAM 0.5 MG TABLET PO (00:33)
--- NOTE | 2024-08-26 04:02 | PC.NURSE ---
Patient approached this continuity writer at approximately 0400, complaining via writing of severe sore throat. Patient declined tylenol, warm/cold pack, and hot tea at that time. Patient stated she has super cryptic tonsils and it will be about 24 hours before this really gets bad.
--- NOTE | 2024-08-26 04:29 | PC.NURSE ---
Patient continues to complain of 10/10 severe throat pain. She continues to decline PRN medications, and states I want to discharge so I can go to the Emergency Department...I promise you, I don't complain much, I'm not being dramatic, but this is gonna be so bad.
[2024-08-26 07:56] VITALS: BP 125/73; PULSE 77; RESP 18; TEMP 35.8; O2SAT 100
[2024-08-26] MEDS: Amphetamine Mixed Salts 10 MG TABLET 15 MG PO ×2 (08:13→12:02)
[2024-08-26] MEDS: Dextroamphetamine/Amphetamine XR 10 MG CAP.ER.24H 20 MG PO (08:13)
[2024-08-26] MEDS: amLODIPine Besylate 5 MG TABLET PO (08:13)
[2024-08-26] MEDS: Pregabalin 200 MG CAPSULE PO (08:13)
[2024-08-26] MEDS: Baclofen 20 MG TABLET PO (08:13)
--- NOTE | 2024-08-26 09:53 | P.PNPSI_ITS ---
Subjective Subjective Date of Service: 08/26/24 Reason For Visit: Psychosis/ Lillie Subjective Notes: Conditional Voluntary and 3 Day Healthcare Proxy: No Guardianship: No Medical Problems Affecting Mental Status: No Interim History: Reported severe sore throat to team. Throat culture positive for Strep Asked for liquid antibiotic Antibiotic ordered, refused. I have had antibiotics before and have not taken the entire course, so they will not work. Refused brief course of zithromax as well. Refusing psychotropics- Olanzapine on 08/25,Risperdal,Guanfacine Medication Compliance: No Side effects from medications: No Attending Groups: No Review of Systems Acute medical concerns: Yes Strep, refusing meds. Medical Review of Systems: changed Review of Systems Review of Systems sore throat, strep Mental Status Exam Mental Status Exam Patient Appearance: Fatigued, Disheveled and Unkempt Patient Orientation: Person, Place and Situation Level of Consciousness: Lethargic Patient Behavior: Guarded, Talkative, Suspicious, Fearful, Resistive to Care, Avoidant, Combative, Distractible and Good Eye Contact Mood Description: Withdrawn Affect Description: Withdrawn Patient Cognition Impaired: Yes Ability to Follow Directions: Poor Speech Pattern: Spontaneous Speech Memory Description: Remote Impaired Hallucinations: None Delusions: Paranoid Ideation and Present Perceptual Disturbances: Depersonalization and Derealization Thought Process: Distracted Thought Content: positive for [place], positive for Circumstantial, positive for Perseveration, positive for Preoccupation and positive for Thought Blocking Depressive Symptoms: Diff. Making Decisions Judgement: Poor Diagnostics Vital Signs (24Hr): Vital Signs - 24 hr 08/25/24 20:00 08/26/24 07:56 Temperature 97.4 F 96.4 F L Pulse Rate 106 H 77 Respiratory Rate 18 Blood Pressure 137/74 125/73 Pulse Oximetry 99 100 Oxygen Delivery Method Room Air Room Air BMI result Body Mass Index 28.2 Labs 08/22/24 14:54 Imaging Radiology Impressions: ITS Impressions [facility] X-Ray 08/25/24 12:05 IMPRESSION: Small amount of stool in the colon. Electronically signed by: Akhil Jamison MD 08/25/2024 01:09 PM EDT Medications Medications Current Medications Acetaminophen (Acetaminophen 325 Mg Tablet) 650 mg PO Q6H PRN PRN Reason: Headache/Pain, Scale 1-10 Last Admin: 08/25/24 08:53 Dose: 650 mg Al Hydroxide/Mg Hydroxide (Magnesium Hydrox/Alum Hydrox 30 Ml Oral.Susp) 30 ml PO Q6H PRN PRN Reason: Heartburn/Nausea Amlodipine Besylate (Amlodipine Besylate 5 Mg Tablet) 5 mg PO DAILY [facility]; Protocol Last Admin: 08/26/24 08:13 Dose: 5 mg Amphetamine/Dextroamphetamine (Amphetamine Mixed Salts 10 Mg Tablet) 15 mg PO BID@0900,1300 [facility] Last Admin: 08/26/24 08:13 Dose: 15 mg Amphetamine/Dextroamphetamine (Dextroamphetamine/Amphetamine Xr 10 Mg Cap.Er.24h) 20 mg PO DAILY [facility] Last Admin: 08/26/24 08:13 Dose: 20 mg Baclofen (Baclofen 20 Mg Tablet) 20 mg PO BID [facility] Last Admin: 08/26/24 08:13 Dose: 20 mg Clonazepam (Clonazepam 0.5 Mg Tablet) 0.5 mg PO BID PRN PRN Reason: anxiety/restlessness Last Admin: 08/26/24 00:33 Dose: 0.5 mg Guanfacine HCl (Guanfacine Hcl Er 1 Mg Tab.Er.24h) 3 mg PO DAILY [facility] Last Admin: 08/25/24 08:28 Dose: 3 mg Hydroxyzine HCl (Hydroxyzine Hcl 25 Mg Tablet) 25 mg PO Q6H PRN PRN Reason: mild anxiety Last Admin: 08/24/24 16:37 Dose: 25 mg Magnesium Hydroxide (Milk Of Magnesia 30 Ml Oral.Susp) 30 ml PO DAILY PRN PRN Reason: Constipation Last Admin: 08/24/24 10:30 Dose: 30 ml Olanzapine (Olanzapine 5 Mg Tablet) 5 mg PO BEDTIME [facility] Last Admin: 08/25/24 20:47 Dose: Not Given Pregabalin (Pregabalin 200 Mg Capsule) 200 mg PO BID [facility] Last Admin: 08/26/24 08:13 Dose: 200 mg Risperidone (Risperidone 1 Mg Tablet) 1 mg PO BID [facility] Last Admin: 08/26/24 08:23 Dose: Not Given Trazodone HCl (Trazodone Hcl 50 Mg Tablet) 50 mg PO BEDTIME MRX1 PRN PRN Reason: Insomnia Allergies Allergies Allergy/AdvReac Type Severity Reaction Status Date / Time No Known Allergies Allergy Verified 08/20/24 16:35 Assessment & Plan Assessment & Plan (1) PTSD (post-traumatic stress disorder): Status: Acute Code(s): F43.10 - Post-traumatic stress disorder, unspecified (2) ADHD (attention deficit hyperactivity disorder), combined type: Status: Acute Code(s): F90.2 - Attention-deficit hyperactivity disorder, combined type (3) Altered mood associated with lillie: Status: Acute Code(s): F30.9 - Manic episode, unspecified Plan gave dose of adderall today and guanfacine, on further review of prior 07/2024 visit will hold adderall further and only give guanfacine until Saturday when treatment team can coordinate with outpatient providers re ? of stimulant on this particular patient who may be manic and had recent psychosis in july. (Around [place] and other issues) 08/23/24 - restarted adderall but at lower overall dose than she was getting, continue guanfacine er- and added olanzapine - at bed time- ... patient not looking comittable at this time but will have a few days observation to determine if this is right path given episode in July- 08/26- Refusing psychiatric meds-olanzapine, risperdal, guanfacine. Strep +, refusing antibiotic Decompensating Temp q8h Enc fluids Hold on stimulants DC Risperdal-pt non compliant Increase Olanzapine to 15 mg HS Probable Section 7 due to care refusal Reason for continued inpatient stay Substantial Risk for: rapid decompensation and med/psych decompensation Time Spent With Patient Time: Total time managing care of this patient today ____ minutes.
[2024-08-26 12:19] LABS: IDNOW Serial# 58CA691E; Strep A Nucleic Acid Positive (Negative)
[2024-08-26 12:43] LABS: Influenza A PCR NEGATIVE (Negative); Influenza B PCR NEGATIVE (Negative); Resp Syncy Virus RNA Qual PCR NEGATIVE (Negative); SARS COV2 PCR INHOUSE NEGATIVE (Negative)
--- NOTE | 2024-08-26 18:23 | PC.NURSE ---
Jessika was made aware of her positive strep throat test and liquid suspension amoxicillin was ordered due to her complaint of difficulty swallowing due to swollen tonsils. When the medication was delivered by pharmacy she refused to take the first dose stating that she was just going to let the disease run its course. She was educated about the complications that can arise from this choice and and the importance of treating the infection. She continued to decline, stating that she has taken too many antibiotics in the past for them to be effective. She continued to decline after speaking with her OUTSIDE LABORER. Later she was offered to switch to [facility] for treatment and she declined this option as well.
[2024-08-26 20:00] VITALS: BP 102/93; PULSE 103; TEMP 36.2; O2SAT 98
[2024-08-27] MEDS: clonazePAM 0.5 MG TABLET PO ×2 (04:03→13:30)
[2024-08-27 08:00] VITALS: BP 120/67; PULSE 90; TEMP 36.1; O2SAT 96
--- NOTE | 2024-08-27 12:21 | P.PNPSI_ITS ---
Subjective Subjective Date of Service: 08/27/24 Reason For Visit: Psychosis/ Arvin Subjective Notes: Section 7 and 3 Day Healthcare Proxy: No Guardianship: No Medical Problems Affecting Mental Status: No Interim History: Section 7 filed. Refusing antibiotic for + strep- I will anyway. Refusing psychotropics Believes that team are imposters. When approached, she is tearful, Hi, are you going to kill me today-I know I deserve it. Told of Section 7- so the technical editor will kill me.? Attempted to educate and reassure. Brief interactions attempted, however, pt is confused, despairing, fearful, physically ill and currently is paranoid and not responsive to interventions. Team reports she did take one dose of antibiotic. Asks to transfer to medicine. It is not strep, it is TB/HIV/Cancer. Medication Compliance: No Side effects from medications: No Attending Groups: No Review of Systems Acute medical concerns: Yes strep Review of Systems Review of Systems strep Mental Status Exam Mental Status Exam Patient Appearance: Fatigued, Disheveled and Unkempt Patient Orientation: Person and Place Level of Consciousness: Restless Patient Behavior: Guarded, Suspicious, Anxious, Fearful, Resistive to Care, Crying and Poor Eye Contact Mood Description: Suspicious, Withdrawn, Fearful and Apprehensive Affect Description: Apprehensive Patient Cognition Impaired: Yes Ability to Follow Directions: Poor Speech Pattern: Spontaneous Speech Memory Description: Remote Impaired Delusions: Paranoid Ideation and Present Perceptual Disturbances: Depersonalization and Derealization Thought Process: Illogical, Distracted, Rumination and Confusion Thought Content: positive for Obsessional Thoughts, positive for Circumstantial, positive for Perseveration and positive for Tangential Depressive Symptoms: Increased Anxiety, Loss of Int. in Activity, Feelings of Worthlessness, Hopelessness, Unhappiness, Increased Fatigue, Thoughts of /Suicide, Loss of Energy and Difficulty Concentrating Judgement: Poor Diagnostics Vital Signs (24Hr): Vital Signs - 24 hr 08/26/24 20:00 08/27/24 08:00 Temperature 97.1 F 96.9 F Pulse Rate 103 H 90 Blood Pressure 102/93 H 120/67 Pulse Oximetry 98 96 Oxygen Delivery Method Room Air Room Air BMI result Body Mass Index 28.2 Labs 08/22/24 14:54 Labs: Laboratory Results - last 48 hr 08/26/24 11:52 Influenza Type A (PCR) NEGATIVE Influenza Type B (PCR) NEGATIVE RSV RNA Qual (PCR) NEGATIVE SARS-CoV-2 RNA (RT-PCR) NEGATIVE S. pyogenes GrpA SWETHA Positive A Imaging Radiology Impressions: ITS Impressions [facility] X-Ray 08/25/24 12:05 IMPRESSION: Small amount of stool in the colon. Electronically signed by: Akhil Jamison MD 08/25/2024 01:09 PM EDT RP Medications Medications Current Medications Acetaminophen (Acetaminophen 325 Mg Tablet) 650 mg PO Q6H PRN PRN Reason: Headache/Pain, Scale 1-10 Last Admin: 08/25/24 08:53 Dose: 650 mg Al Hydroxide/Mg Hydroxide (Magnesium Hydrox/Alum Hydrox 30 Ml Oral.Susp) 30 ml PO Q6H PRN PRN Reason: Heartburn/Nausea Amlodipine Besylate (Amlodipine Besylate 5 Mg Tablet) 5 mg PO DAILY [facility]; Protocol Last Admin: 08/27/24 09:50 Dose: Not Given Amoxicillin (Amoxicillin Oral Susp 400 Mg/5 Ml 75 Ml Susp.Recon) 500 mg PO BID [facility] Stop: 09/06/24 09:00 Last Admin: 08/27/24 09:50 Dose: Not Given Amphetamine/Dextroamphetamine (Amphetamine Mixed Salts 10 Mg Tablet) 15 mg PO BID@0900,1300 [facility] Last Admin: 08/26/24 12:02 Dose: 15 mg Amphetamine/Dextroamphetamine (Dextroamphetamine/Amphetamine Xr 10 Mg Cap.Er.24h) 20 mg PO DAILY [facility] Last Admin: 08/26/24 08:13 Dose: 20 mg Baclofen (Baclofen 20 Mg Tablet) 20 mg PO BID [facility] Last Admin: 08/27/24 09:50 Dose: Not Given Benzocaine (Throat Lozenge, Medicated Lozenge) 1 lozenge MUCOUS MEM Q2H PRN PRN Reason: Sore Throat Clonazepam (Clonazepam 0.5 Mg Tablet) 0.5 mg PO BID PRN PRN Reason: anxiety/restlessness Last Admin: 08/27/24 04:03 Dose: 0.5 mg Guanfacine HCl (Guanfacine Hcl Er 1 Mg Tab.Er.24h) 3 mg PO DAILY [facility] Last Admin: 08/27/24 09:50 Dose: Not Given Hydroxyzine HCl (Hydroxyzine Hcl 25 Mg Tablet) 25 mg PO Q6H PRN PRN Reason: mild anxiety Last Admin: 08/24/24 16:37 Dose: 25 mg Magnesium Hydroxide (Milk Of Magnesia 30 Ml Oral.Susp) 30 ml PO DAILY PRN PRN Reason: Constipation Last Admin: 08/24/24 10:30 Dose: 30 ml Olanzapine (Olanzapine 7.5 Mg Tablet) 15 mg PO BEDTIME [facility] Last Admin: 08/26/24 23:52 Dose: Not Given Pregabalin (Pregabalin 200 Mg Capsule) 200 mg PO BID [facility] Last Admin: 08/27/24 09:50 Dose: Not Given Trazodone HCl (Trazodone Hcl 50 Mg Tablet) 50 mg PO BEDTIME MRX1 PRN PRN Reason: Insomnia Allergies Allergies Allergy/AdvReac Type Severity Reaction Status Date / Time No Known Allergies Allergy Verified 08/20/24 16:35 Assessment & Plan Assessment & Plan (1) PTSD (post-traumatic stress disorder): Status: Acute Code(s): F43.10 - Post-traumatic stress disorder, unspecified (2) ADHD (attention deficit hyperactivity disorder), combined type: Status: Acute Code(s): F90.2 - Attention-deficit hyperactivity disorder, combined type (3) Altered mood associated with arvin: Status: Acute Code(s): F30.9 - Manic episode, unspecified Plan gave dose of adderall today and guanfacine, on further review of prior 07/2024 visit will hold adderall further and only give guanfacine until Saturday when treatment team can coordinate with outpatient providers re ? of stimulant on this particular patient who may be manic and had recent psychosis in july. (Around [place] and other issues) 08/23/24 - restarted adderall but at lower overall dose than she was getting, continue guanfacine er- and added olanzapine - at bed time- ... patient not looking comittable at this time but will have a few days observation to determine if this is right path given episode in July- 08/26- Refusing psychiatric meds-olanzapine, risperdal, guanfacine. Strep +, refusing antibiotic Decompensating Temp q8h Enc fluids Hold on stimulants DC Risperdal-pt non compliant Increase Olanzapine to 15 mg HS Probable Section 7 due to care refusal 08/27 Section 7 filed Strep + refuses antibiotics Refusing tx. Reason for continued inpatient stay Substantial Risk for: med/psych decompensation Time Spent With Patient Time: Total time managing care of this patient today ____ minutes.
[2024-08-27 13:15] VITALS: BP 115/69; PULSE 91; O2SAT 98
[2024-08-27] MEDS: Amoxicillin Oral Susp 400 mg/5 mL 75 mL SUSP.RECON 500 MG PO ×2 (13:28→22:13)
[2024-08-27] MEDS: Baclofen 20 MG TABLET PO ×2 (13:36→22:12)
[2024-08-27 20:00] VITALS: TEMP 36.7
[2024-08-27] MEDS: OLANZapine 7.5 MG TABLET 15 MG PO (22:10)
[2024-08-27] MEDS: Pregabalin 200 MG CAPSULE PO (22:11)
[2024-08-27] MEDS: Throat Lozenge, Medicated LOZENGE 1 LOZENGE MUCOUS MEM (22:19)
[2024-08-28] MEDS: Pregabalin 200 MG CAPSULE PO ×2 (08:58→20:48)
[2024-08-28] MEDS: Baclofen 20 MG TABLET PO ×2 (08:58→20:48)
[2024-08-28] MEDS: guanFACINE HCl ER 1 MG TAB.ER.24H 3 MG PO (08:58)
[2024-08-28] MEDS: Amoxicillin Oral Susp 400 mg/5 mL 75 mL SUSP.RECON 500 MG PO ×2 (09:01→20:47)
[2024-08-28 09:08] VITALS: BP 129/67
[2024-08-28] MEDS: amLODIPine Besylate 5 MG TABLET PO (09:08)
[2024-08-28] MEDS: Throat Lozenge, Medicated LOZENGE 1 LOZENGE MUCOUS MEM ×2 (12:23→20:53)
[2024-08-28] MEDS: Acetaminophen 325 MG TABLET 650 MG PO (12:54)
[2024-08-28] MEDS: clonazePAM 0.5 MG TABLET PO (13:31)
--- NOTE | 2024-08-28 16:25 | P.PNPSI_ITS ---
Subjective Subjective Date of Service: 08/28/24 Reason For Visit: Psychosis/ Lillie Subjective Notes: Section 7 Healthcare Proxy: No Guardianship: No Medical Problems Affecting Mental Status: No Interim History: Accepted 3 doses of antibiotic thus far. Poor compliance with Olanzapine Improved energy and mood today, possibly with hypomanic sx. Increased cooperation with her plan of care. Encouraged tx compliance Medication Compliance: Intermittent Side effects from medications: No Attending Groups: No Review of Systems Acute medical concerns: Yes Review of Systems Review of Systems strep+ Mental Status Exam Mental Status Exam Patient Appearance: Fatigued Patient Orientation: Person and Place Level of Consciousness: Awake and Alert Patient Behavior: Guarded, Suspicious, Anxious, Resistive to Care and Distractible Mood Description: Suspicious, Withdrawn, Anxious and Apprehensive Affect Description: Apprehensive Patient Cognition Impaired: Yes Ability to Follow Directions: Poor Speech Pattern: Spontaneous Speech Memory Description: Remote Impaired Delusions: Paranoid Ideation and Present Perceptual Disturbances: Depersonalization and Derealization Thought Process: Illogical and Distracted Thought Content: positive for Obsessional Thoughts, positive for Circumstantial, positive for Perseveration and positive for Tangential Depressive Symptoms: Increased Anxiety and Difficulty Concentrating Judgement: Poor Diagnostics Vital Signs (24Hr): Vital Signs - 24 hr 08/27/24 20:00 08/28/24 09:08 Temperature 98.1 F Blood Pressure 129/67 BMI result Body Mass Index 28.2 Labs 08/22/24 14:54 Imaging Radiology Impressions: ITS Impressions [facility] X-Ray 08/25/24 12:05 IMPRESSION: Small amount of stool in the colon. Electronically signed by: Akhil Jamison MD 08/25/2024 01:09 PM EDT Medications Medications Current Medications Acetaminophen (Acetaminophen 325 Mg Tablet) 650 mg PO Q6H PRN PRN Reason: Headache/Pain, Scale 1-10 Last Admin: 08/28/24 12:54 Dose: 650 mg Al Hydroxide/Mg Hydroxide (Magnesium Hydrox/Alum Hydrox 30 Ml Oral.Susp) 30 ml PO Q6H PRN PRN Reason: Heartburn/Nausea Amlodipine Besylate (Amlodipine Besylate 5 Mg Tablet) 5 mg PO DAILY [facility]; Protocol Last Admin: 08/28/24 09:08 Dose: 5 mg Amoxicillin (Amoxicillin Oral Susp 400 Mg/5 Ml 75 Ml Susp.Recon) 500 mg PO BID [facility] Stop: 09/06/24 09:00 Last Admin: 08/28/24 09:01 Dose: 500 mg Amphetamine/Dextroamphetamine (Amphetamine Mixed Salts 10 Mg Tablet) 15 mg PO BID@0900,1300 [facility] Last Admin: 08/26/24 12:02 Dose: 15 mg Amphetamine/Dextroamphetamine (Dextroamphetamine/Amphetamine Xr 10 Mg Cap.Er.24h) 20 mg PO DAILY [facility] Last Admin: 08/26/24 08:13 Dose: 20 mg Baclofen (Baclofen 20 Mg Tablet) 20 mg PO BID [facility] Last Admin: 08/28/24 08:58 Dose: 20 mg Benzocaine (Throat Lozenge, Medicated Lozenge) 1 lozenge MUCOUS MEM Q2H PRN PRN Reason: Sore Throat Last Admin: 08/28/24 12:23 Dose: 1 lozenge Clonazepam (Clonazepam 0.5 Mg Tablet) 0.5 mg PO BID PRN PRN Reason: anxiety/restlessness Last Admin: 08/28/24 13:31 Dose: 0.5 mg Guanfacine HCl (Guanfacine Hcl Er 1 Mg Tab.Er.24h) 3 mg PO DAILY [facility] Last Admin: 08/28/24 08:58 Dose: 3 mg Hydroxyzine HCl (Hydroxyzine Hcl 25 Mg Tablet) 25 mg PO Q6H PRN PRN Reason: mild anxiety Last Admin: 08/24/24 16:37 Dose: 25 mg Magnesium Hydroxide (Milk Of Magnesia 30 Ml Oral.Susp) 30 ml PO DAILY PRN PRN Reason: Constipation Last Admin: 08/24/24 10:30 Dose: 30 ml Olanzapine (Olanzapine 7.5 Mg Tablet) 15 mg PO BEDTIME [facility] Last Admin: 08/27/24 22:10 Dose: 7.5 mg Pregabalin (Pregabalin 200 Mg Capsule) 200 mg PO BID [facility] Last Admin: 08/28/24 08:58 Dose: 200 mg Trazodone HCl (Trazodone Hcl 50 Mg Tablet) 50 mg PO BEDTIME MRX1 PRN PRN Reason: Insomnia Allergies Allergies Allergy/AdvReac Type Severity Reaction Status Date / Time No Known Allergies Allergy Verified 08/20/24 16:35 Assessment & Plan Assessment & Plan (1) PTSD (post-traumatic stress disorder): Status: Acute Code(s): F43.10 - Post-traumatic stress disorder, unspecified (2) ADHD (attention deficit hyperactivity disorder), combined type: Status: Acute Code(s): F90.2 - Attention-deficit hyperactivity disorder, combined type (3) Altered mood associated with lillie: Status: Acute Code(s): F30.9 - Manic episode, unspecified Plan gave dose of adderall today and guanfacine, on further review of prior 07/2024 visit will hold adderall further and only give guanfacine until Saturday when treatment team can coordinate with outpatient providers re ? of stimulant on this particular patient who may be manic and had recent psychosis in july. (Around [place] and other issues) 08/23/24 - restarted adderall but at lower overall dose than she was getting, continue guanfacine er- and added olanzapine - at bed time- ... patient not looking comittable at this time but will have a few days observation to determine if this is right path given episode in July- 08/26- Refusing psychiatric meds-olanzapine, risperdal, guanfacine. Strep +, refusing antibiotic Decompensating Temp q8h Enc fluids Hold on stimulants DC Risperdal-pt non compliant Increase Olanzapine to 15 mg HS Probable Section 7 due to care refusal 08/28- Continue to encourage treatment Reason for continued inpatient stay Substantial Risk for: rapid decompensation and med/psych decompensation Time Spent With Patient Time: Total time managing care of this patient today ____ minutes.
[2024-08-28 20:00] VITALS: BP 121/59; PULSE 81; RESP 18; TEMP 36.8; O2SAT 98
[2024-08-28] MEDS: OLANZapine 7.5 MG TABLET 15 MG PO (20:48)
[2024-08-29 10:30] VITALS: BP 126/81
--- NOTE | 2024-08-29 10:33 | P.PNPSI_ITS ---
Subjective Subjective Date of Service: 08/29/24 Reason For Visit: Psychosis/ Lillie Interim History: Met with patient; discussed with team Patient says she is feeling a little better now with antibiotic though still with some body aches. Patient says she is sleeping well and Zyprexa and will continue to take it. Mental Status Exam Mental Status Exam Patient Appearance: Fatigued and Unkempt Patient Orientation: Person, Place and Time Level of Consciousness: Awake and Alert Patient Behavior: Cooperative Mood Description: Calm Affect Description: Appropriate Patient Cognition Impaired: Yes Ability to Follow Directions: Fair Speech Pattern: Spontaneous Speech Memory Description: Remote Impaired Delusions: Paranoid Ideation and Present Perceptual Disturbances: Depersonalization and Derealization Thought Process: Goal Oriented Thought Content: positive for Obsessional Thoughts (But not overtly expressed), positive for Circumstantial, positive for Goal Oriented (Able to be goal oriented) and positive for Perseveration Judgement: Poor Diagnostics Vital Signs (24Hr): Vital Signs - 24 hr 08/28/24 20:00 Temperature 98.3 F Pulse Rate 81 Respiratory Rate 18 Blood Pressure 121/59 L Pulse Oximetry 98 Oxygen Delivery Method Room Air BMI result Body Mass Index 28.2 Labs 08/22/24 14:54 Imaging Radiology Impressions: ITS Impressions [facility] X-Ray 08/25/24 12:05 IMPRESSION: Small amount of stool in the colon. Electronically signed by: Akhil Jamison MD 08/25/2024 01:09 PM EDT RP Medications Medications Current Medications Acetaminophen (Acetaminophen 325 Mg Tablet) 650 mg PO Q6H PRN PRN Reason: Headache/Pain, Scale 1-10 Last Admin: 08/28/24 12:54 Dose: 650 mg Al Hydroxide/Mg Hydroxide (Magnesium Hydrox/Alum Hydrox 30 Ml Oral.Susp) 30 ml PO Q6H PRN PRN Reason: Heartburn/Nausea Amlodipine Besylate (Amlodipine Besylate 5 Mg Tablet) 5 mg PO DAILY COUNTS INCLUDE 234 BEDS AT THE [facility]; Protocol Last Admin: 08/28/24 09:08 Dose: 5 mg Amoxicillin (Amoxicillin Oral Susp 400 Mg/5 Ml 75 Ml Susp.Recon) 500 mg PO BID [facility] Stop: 09/06/24 09:00 Last Admin: 08/28/24 20:47 Dose: 500 mg Amphetamine/Dextroamphetamine (Amphetamine Mixed Salts 10 Mg Tablet) 15 mg PO BID@0900,1300 COUNTS INCLUDE 234 BEDS AT THE [facility] Last Admin: 08/26/24 12:02 Dose: 15 mg Amphetamine/Dextroamphetamine (Dextroamphetamine/Amphetamine Xr 10 Mg Cap.Er.24h) 20 mg PO DAILY COUNTS INCLUDE 234 BEDS AT THE [facility] Last Admin: 08/26/24 08:13 Dose: 20 mg Baclofen (Baclofen 20 Mg Tablet) 20 mg PO BID COUNTS INCLUDE 234 BEDS AT THE [facility] Last Admin: 08/28/24 20:48 Dose: 20 mg Benzocaine (Throat Lozenge, Medicated Lozenge) 1 lozenge MUCOUS MEM Q2H PRN PRN Reason: Sore Throat Last Admin: 08/28/24 20:53 Dose: 1 lozenge Clonazepam (Clonazepam 0.5 Mg Tablet) 0.5 mg PO BID PRN PRN Reason: anxiety/restlessness Last Admin: 08/28/24 13:31 Dose: 0.5 mg Guanfacine HCl (Guanfacine Hcl Er 1 Mg Tab.Er.24h) 3 mg PO DAILY COUNTS INCLUDE 234 BEDS AT THE [facility] Last Admin: 08/28/24 08:58 Dose: 3 mg Hydroxyzine HCl (Hydroxyzine Hcl 25 Mg Tablet) 25 mg PO Q6H PRN PRN Reason: mild anxiety Last Admin: 08/24/24 16:37 Dose: 25 mg Magnesium Hydroxide (Milk Of Magnesia 30 Ml Oral.Susp) 30 ml PO DAILY PRN PRN Reason: Constipation Last Admin: 08/24/24 10:30 Dose: 30 ml Olanzapine (Olanzapine 7.5 Mg Tablet) 15 mg PO BEDTIME COUNTS INCLUDE 234 BEDS AT THE [facility] Last Admin: 08/28/24 20:48 Dose: 15 mg Pregabalin (Pregabalin 200 Mg Capsule) 200 mg PO BID COUNTS INCLUDE 234 BEDS AT THE [facility] Last Admin: 08/28/24 20:48 Dose: 200 mg Trazodone HCl (Trazodone Hcl 50 Mg Tablet) 50 mg PO BEDTIME MRX1 PRN PRN Reason: Insomnia Allergies Allergies Allergy/AdvReac Type Severity Reaction Status Date / Time No Known Allergies Allergy Verified 08/20/24 16:35 Assessment & Plan Assessment & Plan (1) Altered mood associated with lillie: Status: Acute Code(s): F30.9 - Manic episode, unspecified (2) PTSD (post-traumatic stress disorder): Status: Acute Code(s): F43.10 - Post-traumatic stress disorder, unspecified (3) ADHD (attention deficit hyperactivity disorder), combined type: Status: Acute Code(s): F90.2 - Attention-deficit hyperactivity disorder, combined type Plan gave dose of adderall today and guanfacine, on further review of prior 07/2024 visit will hold adderall further and only give guanfacine until Saturday when treatment team can coordinate with outpatient providers re ? of stimulant on this particular patient who may be manic and had recent psychosis in july. (Around [place] and other issues) 08/23/24 - restarted adderall but at lower overall dose than she was getting, continue guanfacine er- and added olanzapine - at bed time- ... patient not looking comittable at this time but will have a few days observation to determine if this is right path given episode in July- 08/26- Refusing psychiatric meds-olanzapine, risperdal, guanfacine. Strep +, refusing antibiotic Decompensating Temp q8h Enc fluids Hold on stimulants DC Risperdal-pt non compliant Increase Olanzapine to 15 mg HS Probable Section 7 due to care refusal 08/28- Continue to encourage treatment 08/29 Patient says she is feeling a little better now with antibiotic though still with some body aches. Patient says she is sleeping well and Zyprexa and will continue to take it. -seems to be more organized in speech and behavior; easier with which to engage Patient educated on: medical condition Informed Consent: understands Reason for continued inpatient stay Substantial Risk for: rapid decompensation Time Spent With Patient Time: Total time managing care of this patient today ____ minutes.
[2024-08-29 10:39] VITALS: BP 126/81
[2024-08-29] MEDS: Baclofen 20 MG TABLET PO ×2 (10:39→20:28)
[2024-08-29] MEDS: guanFACINE HCl ER 1 MG TAB.ER.24H 3 MG PO (10:39)
[2024-08-29] MEDS: Pregabalin 200 MG CAPSULE PO ×2 (10:39→20:28)
[2024-08-29] MEDS: amLODIPine Besylate 5 MG TABLET PO (10:39)
[2024-08-29] MEDS: Amoxicillin Oral Susp 400 mg/5 mL 75 mL SUSP.RECON 500 MG PO ×2 (10:39→21:01)
[2024-08-29] MEDS: Acetaminophen 325 MG TABLET 650 MG PO ×2 (11:08→20:28)
[2024-08-29] MEDS: Milk of Magnesia 30 ML ORAL.SUSP PO (14:00)
[2024-08-29] MEDS: Throat Lozenge, Medicated LOZENGE 1 LOZENGE MUCOUS MEM (20:28)
[2024-08-29] MEDS: OLANZapine 7.5 MG TABLET 15 MG PO (20:28)
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
[2024-08-30] MEDS: Pregabalin 200 MG CAPSULE PO ×2 (08:43→20:03)
[2024-08-30] MEDS: Amoxicillin Oral Susp 400 mg/5 mL 75 mL SUSP.RECON 500 MG PO ×2 (08:43→20:07)
[2024-08-30] MEDS: Baclofen 20 MG TABLET PO ×2 (08:43→20:03)
[2024-08-30] MEDS: guanFACINE HCl ER 1 MG TAB.ER.24H 3 MG PO (08:43)
[2024-08-30 08:47] VITALS: BP 120/80
[2024-08-30] MEDS: amLODIPine Besylate 5 MG TABLET PO (08:47)
[2024-08-30] MEDS: Milk of Magnesia 30 ML ORAL.SUSP PO (09:24)
[2024-08-30] MEDS: Acetaminophen 325 MG TABLET 650 MG PO (09:24)
[2024-08-30 20:00] VITALS: BP 110/64; PULSE 67; TEMP 36.8; O2SAT 99
[2024-08-30] MEDS: metFORMIN HCl ER 500 MG TAB.ER.24H PO (20:01)
[2024-08-30] MEDS: OLANZapine 7.5 MG TABLET 15 MG PO (20:04)
[2024-08-31 08:13] VITALS: BP 94/58; PULSE 74; RESP 16; TEMP 36.4; O2SAT 98
[2024-08-31] MEDS: Pregabalin 200 MG CAPSULE PO ×2 (08:15→20:58)
[2024-08-31] MEDS: Baclofen 20 MG TABLET PO ×2 (08:15→20:58)
[2024-08-31] MEDS: amLODIPine Besylate 5 MG TABLET PO (08:15)
[2024-08-31] MEDS: guanFACINE HCl ER 1 MG TAB.ER.24H 3 MG PO (08:15)
[2024-08-31 08:28] LABS: Creatinine Clr Calc Pharmacy 130.1; Estimated Glomerular Filt Rate > 60
[2024-08-31] MEDS: Amoxicillin Oral Susp 400 mg/5 mL 75 mL SUSP.RECON 500 MG PO ×2 (08:57→21:45)
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
[2024-08-31] MEDS: Milk of Magnesia 30 ML ORAL.SUSP PO (10:34)
[2024-08-31] MEDS: hydrOXYzine HCL 25 MG TABLET PO (12:11)
[2024-08-31] MEDS: Acetaminophen 325 MG TABLET 650 MG PO (16:44)
[2024-08-31 20:00] VITALS: BP 117/65; PULSE 73; RESP 16; TEMP 36.4; O2SAT 99
[2024-08-31] MEDS: metFORMIN HCl ER 500 MG TAB.ER.24H PO (20:58)
[2024-08-31] MEDS: OLANZapine 7.5 MG TABLET 15 MG PO (20:58)
[2024-09-01 07:55] VITALS: BP 121/79; PULSE 74; RESP 16; TEMP 36.4; O2SAT 100
[2024-09-01] MEDS: guanFACINE HCl ER 1 MG TAB.ER.24H 3 MG PO (08:30)
[2024-09-01] MEDS: Baclofen 20 MG TABLET PO ×2 (08:30→21:47)
[2024-09-01] MEDS: Amoxicillin Oral Susp 400 mg/5 mL 75 mL SUSP.RECON 500 MG PO ×2 (08:30→21:48)
[2024-09-01] MEDS: amLODIPine Besylate 5 MG TABLET PO (08:30)
[2024-09-01] MEDS: Pregabalin 200 MG CAPSULE PO ×2 (08:30→21:47)
[2024-09-01] MEDS: Acetaminophen 325 MG TABLET 650 MG PO (12:20)
--- NOTE | 2024-09-01 12:44 | P.PNPSI_ITS ---
Subjective Subjective Date of Service: 09/01/24 Reason For Visit: Psychosis/ Lillie Subjective Notes: Conditional Voluntary Healthcare Proxy: No Guardianship: No Medical Problems Affecting Mental Status: No Interim History: Reports feeling improved. Tangential, talking of her trauma. Believes it initiated when she started a relationship with ex from [place]. As a result, believes that all of her negative experiences have come from her association with a person of another race and she now needs to remain connected only to those of her race. Racial comments made to a peer- these were discussed. Caodaism focus with team, expert medical writer. Hoping the denominational will provide housing. when she discharges. Medication Compliance: Yes Side effects from medications: No Attending Groups: Intermittent Review of Systems Acute medical concerns: No Medical Review of Systems: unchanged Review of Systems Review of Systems Denies Mental Status Exam Mental Status Exam Patient Appearance: Appropriate Patient Orientation: Person, Place, Time and Situation Level of Consciousness: Alert Patient Behavior: Appropriate, Talkative and Good Eye Contact Mood Description: Anxious and Apprehensive Affect Description: Anxious and Apprehensive Patient Cognition Impaired: No Ability to Follow Directions: Good Speech Pattern: Spontaneous Speech Memory Description: Episodic Impaired Hallucinations: None Delusions: Not Present Perceptual Disturbances: Depersonalization and Derealization Thought Process: Goal Oriented Thought Content: positive for Circumstantial and positive for Perseveration Depressive Symptoms: Increased Anxiety and Low Self Esteem Judgement: Fair Diagnostics Vital Signs (24Hr): Vital Signs - 24 hr 08/31/24 20:00 09/01/24 07:55 Temperature 97.5 F 97.6 F Pulse Rate 73 74 Respiratory Rate 16 16 Blood Pressure 117/65 121/79 Pulse Oximetry 99 100 Oxygen Delivery Method Room Air Room Air BMI result Body Mass Index 28.2 Labs 08/31/24 07:59 Labs: Laboratory Results - last 48 hr 08/31/24 07:59 Creatinine 0.72 Estim Creat Clear Calc 130.1 Estimated GFR > 60 Imaging Radiology Impressions: ITS Impressions KUB X-Ray 08/25/24 12:05 IMPRESSION: Small amount of stool in the colon. Electronically signed by: Akhil Jamison MD 08/25/2024 01:09 PM EDT RP Medications Medications Current Medications Acetaminophen (Acetaminophen 325 Mg Tablet) 650 mg PO Q6H PRN PRN Reason: Headache/Pain, Scale 1-10 Last Admin: 09/01/24 12:20 Dose: 650 mg Al Hydroxide/Mg Hydroxide (Magnesium Hydrox/Alum Hydrox 30 Ml Oral.Susp) 30 ml PO Q6H PRN PRN Reason: Heartburn/Nausea Amlodipine Besylate (Amlodipine Besylate 5 Mg Tablet) 5 mg PO DAILY [facility]; Protocol Last Admin: 09/01/24 08:30 Dose: 5 mg Amoxicillin (Amoxicillin Oral Susp 400 Mg/5 Ml 75 Ml Susp.Recon) 500 mg PO BID [facility] Stop: 09/06/24 09:00 Last Admin: 09/01/24 08:30 Dose: 500 mg Amphetamine/Dextroamphetamine (Amphetamine Mixed Salts 10 Mg Tablet) 15 mg PO BID@0900,1300 [facility] Last Admin: 08/26/24 12:02 Dose: 15 mg Amphetamine/Dextroamphetamine (Dextroamphetamine/Amphetamine Xr 10 Mg Cap.Er.24h) 20 mg PO DAILY [facility] Last Admin: 08/26/24 08:13 Dose: 20 mg Baclofen (Baclofen 20 Mg Tablet) 20 mg PO BID [facility] Last Admin: 09/01/24 08:30 Dose: 20 mg Benzocaine (Throat Lozenge, Medicated Lozenge) 1 lozenge MUCOUS MEM Q2H PRN PRN Reason: Sore Throat Last Admin: 08/29/24 20:28 Dose: 1 lozenge Clonazepam (Clonazepam 0.5 Mg Tablet) 0.5 mg PO BID PRN PRN Reason: anxiety/restlessness Last Admin: 08/28/24 13:31 Dose: 0.5 mg Guanfacine HCl (Guanfacine Hcl Er 1 Mg Tab.Er.24h) 3 mg PO DAILY [facility] Last Admin: 09/01/24 08:30 Dose: 3 mg Hydroxyzine HCl (Hydroxyzine Hcl 25 Mg Tablet) 25 mg PO Q6H PRN PRN Reason: mild anxiety Last Admin: 08/31/24 12:11 Dose: 25 mg Magnesium Hydroxide (Milk Of Magnesia 30 Ml Oral.Susp) 30 ml PO DAILY PRN PRN Reason: Constipation Last Admin: 08/31/24 10:34 Dose: 30 ml Metformin HCl (Metformin Hcl Er 500 Mg Tab.Er.24h) 500 mg PO BEDTIME [facility] Last Admin: 08/31/24 20:58 Dose: 500 mg Olanzapine (Olanzapine 7.5 Mg Tablet) 15 mg PO BEDTIME [facility] Last Admin: 08/31/24 20:58 Dose: 15 mg Pregabalin (Pregabalin 200 Mg Capsule) 200 mg PO BID [facility] Last Admin: 09/01/24 08:30 Dose: 200 mg Trazodone HCl (Trazodone Hcl 50 Mg Tablet) 50 mg PO BEDTIME MRX1 PRN PRN Reason: Insomnia Allergies Allergies Allergy/AdvReac Type Severity Reaction Status Date / Time No Known Allergies Allergy Verified 08/20/24 16:35 Assessment & Plan Assessment & Plan (1) Altered mood associated with lillie: Status: Acute Code(s): F30.9 - Manic episode, unspecified (2) PTSD (post-traumatic stress disorder): Status: Acute Code(s): F43.10 - Post-traumatic stress disorder, unspecified (3) ADHD (attention deficit hyperactivity disorder), combined type: Status: Acute Code(s): F90.2 - Attention-deficit hyperactivity disorder, combined type Plan gave dose of adderall today and guanfacine, on further review of prior 07/2024 visit will hold adderall further and only give guanfacine until Saturday when treatment team can coordinate with outpatient providers re ? of stimulant on this particular patient who may be manic and had recent psychosis in july. (Around [place] and other issues) 08/23/24 - restarted adderall but at lower overall dose than she was getting, continue guanfacine er- and added olanzapine - at bed time- ... patient not looking comittable at this time but will have a few days observation to determine if this is right path given episode in July- 08/26- Refusing psychiatric meds-olanzapine, risperdal, guanfacine. Strep +, refusing antibiotic Decompensating Temp q8h Enc fluids Hold on stimulants DC Risperdal-pt non compliant Increase Olanzapine to 15 mg HS Probable Section 7 due to care refusal 08/28- Continue to encourage treatment 08/29 Patient says she is feeling a little better now with antibiotic though still with some body aches. Patient says she is sleeping well and Zyprexa and will continue to take it. -seems to be more organized in speech and behavior; easier with which to engage 08/30 pt says feeling much better; still body aches but overall feels improved. zyprexa tiring but will see if body gets used to it (and tiredness maybe to due to recovering from illness) says no longer rape tapes i was out of my mind and no longer -agreed to start metformin to mitigate side-effect risks of Zyprexa; reviewed risks/side effect 08/31 Pt retracted TDN. This was accepted. Status returns to CV. Team has consulted with legal. Encourage milieu now that pt is clearer. 09/01 Continue tx Reason for continued inpatient stay Substantial Risk for: rapid decompensation Time Spent With Patient Time: Total time managing care of this patient today ____ minutes.
[2024-09-01 20:00] VITALS: BP 113/81; PULSE 91; TEMP 36.7; O2SAT 97
[2024-09-01] MEDS: metFORMIN HCl ER 500 MG TAB.ER.24H PO (21:47)
[2024-09-01] MEDS: OLANZapine 7.5 MG TABLET 15 MG PO (21:48)
[2024-09-02 07:46] VITALS: BP 117/59; PULSE 98; RESP 18; TEMP 36.6; O2SAT 100
[2024-09-02] MEDS: Baclofen 20 MG TABLET PO ×2 (08:23→20:28)
[2024-09-02] MEDS: Pregabalin 200 MG CAPSULE PO ×2 (08:23→20:28)
[2024-09-02] MEDS: guanFACINE HCl ER 1 MG TAB.ER.24H 3 MG PO (08:23)
[2024-09-02] MEDS: amLODIPine Besylate 5 MG TABLET PO (08:23)
[2024-09-02] MEDS: Amoxicillin Oral Susp 400 mg/5 mL 75 mL SUSP.RECON 500 MG PO ×2 (08:30→22:08)
--- NOTE | 2024-09-02 10:46 | P.PNPSI_ITS ---
Subjective Subjective Date of Service: 09/02/24 Reason For Visit: Psychosis/ Lillie Subjective Notes: Conditional Voluntary Healthcare Proxy: No Guardianship: No Medical Problems Affecting Mental Status: No Interim History: Reports ongoing improvement. Less tangential when we met today. Continues to look to the druze for housing, meeting with [facility] clergy while on the unit. Discussed making contact with her father (who has offered housing) and her aunt in [place] whom she reports has also offered housing Discussed medications, which she plans to continue post discharge with OP team at [facility]. They have helped, I don't know why I did not want to take them. Discussed concerns about missing a court date in [place] and warrants from [place]. Will follow up with both upon discharge Medication Compliance: Yes Side effects from medications: No Attending Groups: Intermittent Review of Systems Acute medical concerns: No Review of Systems Review of Systems Denies Mental Status Exam Mental Status Exam Patient Appearance: Appropriate Patient Orientation: Person, Place, Time and Situation Level of Consciousness: Alert Patient Behavior: Appropriate, Talkative and Good Eye Contact Mood Description: Anxious and Apprehensive Affect Description: Anxious and Apprehensive Patient Cognition Impaired: No Ability to Follow Directions: Good Speech Pattern: Spontaneous Speech Memory Description: Episodic Impaired Hallucinations: None Delusions: Not Present Perceptual Disturbances: Depersonalization and Derealization Thought Process: Goal Oriented Thought Content: positive for Circumstantial, positive for Perseveration and positive for Tangential (decreased) Depressive Symptoms: Increased Anxiety and Low Self Esteem Judgement: Fair Diagnostics Vital Signs (24Hr): Vital Signs - 24 hr 09/01/24 20:00 09/02/24 07:46 Temperature 98.1 F 97.8 F Pulse Rate 91 98 Respiratory Rate 18 Blood Pressure 113/81 117/59 L Pulse Oximetry 97 100 Oxygen Delivery Method Room Air Room Air BMI result Body Mass Index 28.2 Labs 08/31/24 07:59 Imaging Radiology Impressions: ITS Impressions KUB X-Ray 08/25/24 12:05 IMPRESSION: Small amount of stool in the colon. Electronically signed by: Akhil Jamison MD 08/25/2024 01:09 PM EDT Medications Medications Current Medications Acetaminophen (Acetaminophen 325 Mg Tablet) 650 mg PO Q6H PRN PRN Reason: Headache/Pain, Scale 1-10 Last Admin: 09/01/24 12:20 Dose: 650 mg Al Hydroxide/Mg Hydroxide (Magnesium Hydrox/Alum Hydrox 30 Ml Oral.Susp) 30 ml PO Q6H PRN PRN Reason: Heartburn/Nausea Amlodipine Besylate (Amlodipine Besylate 5 Mg Tablet) 5 mg PO DAILY [facility]; Protocol Last Admin: 09/02/24 08:23 Dose: 5 mg Amoxicillin (Amoxicillin Oral Susp 400 Mg/5 Ml 75 Ml Susp.Recon) 500 mg PO BID [facility] Stop: 09/06/24 09:00 Last Admin: 09/02/24 08:30 Dose: 500 mg Amphetamine/Dextroamphetamine (Amphetamine Mixed Salts 10 Mg Tablet) 15 mg PO BID@0900,1300 [facility] Last Admin: 08/26/24 12:02 Dose: 15 mg Amphetamine/Dextroamphetamine (Dextroamphetamine/Amphetamine Xr 10 Mg Cap.Er.24h) 20 mg PO DAILY [facility] Last Admin: 08/26/24 08:13 Dose: 20 mg Baclofen (Baclofen 20 Mg Tablet) 20 mg PO BID [facility] Last Admin: 09/02/24 08:23 Dose: 20 mg Benzocaine (Throat Lozenge, Medicated Lozenge) 1 lozenge MUCOUS MEM Q2H PRN PRN Reason: Sore Throat Last Admin: 08/29/24 20:28 Dose: 1 lozenge Clonazepam (Clonazepam 0.5 Mg Tablet) 0.5 mg PO BID PRN PRN Reason: anxiety/restlessness Last Admin: 08/28/24 13:31 Dose: 0.5 mg Guanfacine HCl (Guanfacine Hcl Er 1 Mg Tab.Er.24h) 3 mg PO DAILY [facility] Last Admin: 09/02/24 08:23 Dose: 3 mg Hydroxyzine HCl (Hydroxyzine Hcl 25 Mg Tablet) 25 mg PO Q6H PRN PRN Reason: mild anxiety Last Admin: 08/31/24 12:11 Dose: 25 mg Magnesium Hydroxide (Milk Of Magnesia 30 Ml Oral.Susp) 30 ml PO DAILY PRN PRN Reason: Constipation Last Admin: 08/31/24 10:34 Dose: 30 ml Metformin HCl (Metformin Hcl Er 500 Mg Tab.Er.24h) 500 mg PO BEDTIME [facility] Last Admin: 09/01/24 21:47 Dose: 500 mg Olanzapine (Olanzapine 7.5 Mg Tablet) 15 mg PO BEDTIME [facility] Last Admin: 09/01/24 21:48 Dose: 15 mg Pregabalin (Pregabalin 200 Mg Capsule) 200 mg PO BID [facility] Last Admin: 09/02/24 08:23 Dose: 200 mg Trazodone HCl (Trazodone Hcl 50 Mg Tablet) 50 mg PO BEDTIME MRX1 PRN PRN Reason: Insomnia Allergies Allergies Allergy/AdvReac Type Severity Reaction Status Date / Time No Known Allergies Allergy Verified 08/20/24 16:35 Assessment & Plan Assessment & Plan (1) Altered mood associated with lillie: Status: Acute Code(s): F30.9 - Manic episode, unspecified (2) PTSD (post-traumatic stress disorder): Status: Acute Code(s): F43.10 - Post-traumatic stress disorder, unspecified (3) ADHD (attention deficit hyperactivity disorder), combined type: Status: Acute Code(s): F90.2 - Attention-deficit hyperactivity disorder, combined type Plan gave dose of adderall today and guanfacine, on further review of prior 07/2024 visit will hold adderall further and only give guanfacine until Saturday when treatment team can coordinate with outpatient providers re ? of stimulant on this particular patient who may be manic and had recent psychosis in july. (Around [place] and other issues) 08/23/24 - restarted adderall but at lower overall dose than she was getting, continue guanfacine er- and added olanzapine - at bed time- ... patient not looking comittable at this time but will have a few days observation to determine if this is right path given episode in July- 08/26- Refusing psychiatric meds-olanzapine, risperdal, guanfacine. Strep +, refusing antibiotic Decompensating Temp q8h Enc fluids Hold on stimulants DC Risperdal-pt non compliant Increase Olanzapine to 15 mg HS Probable Section 7 due to care refusal 08/28- Continue to encourage treatment 08/29 Patient says she is feeling a little better now with antibiotic though still with some body aches. Patient says she is sleeping well and Zyprexa and will continue to take it. -seems to be more organized in speech and behavior; easier with which to engage 08/30 pt says feeling much better; still body aches but overall feels improved. zyprexa tiring but will see if body gets used to it (and tiredness maybe to due to recovering from illness) says no longer rape tapes i was out of my mind and no longer -agreed to start metformin to mitigate side-effect risks of Zyprexa; reviewed risks/side effect 08/31 Pt retracted TDN. This was accepted. Status returns to CV. Team has consulted with legal. Encourage milieu now that pt is clearer. 09/02- Continue tx DC planning Reason for continued inpatient stay Substantial Risk for: rapid decompensation Time Spent With Patient Time: Total time managing care of this patient today ____ minutes.
[2024-09-02] MEDS: Acetaminophen 325 MG TABLET 650 MG PO (11:47)
[2024-09-02 19:36] VITALS: BP 148/73; PULSE 64; TEMP 36.2; O2SAT 97
[2024-09-02] MEDS: OLANZapine 7.5 MG TABLET 15 MG PO (20:28)
[2024-09-02] MEDS: metFORMIN HCl ER 500 MG TAB.ER.24H PO (20:28)
[2024-09-02] MEDS: hydrOXYzine HCL 25 MG TABLET PO (20:28)
[2024-09-02] MEDS: Throat Lozenge, Medicated LOZENGE 1 LOZENGE MUCOUS MEM (20:28)
[2024-09-02] MEDS: traZODone HCL 50 MG TABLET PO (20:28)
[2024-09-03 07:00] VITALS: BMI 29.3
[2024-09-03 09:05] VITALS: BP 133/70; PULSE 75; TEMP 36.4; O2SAT 98
[2024-09-03] MEDS: Amoxicillin Oral Susp 400 mg/5 mL 75 mL SUSP.RECON 500 MG PO ×2 (09:06→21:43)
[2024-09-03] MEDS: Pregabalin 200 MG CAPSULE PO ×2 (09:08→21:45)
[2024-09-03] MEDS: amLODIPine Besylate 5 MG TABLET PO (09:08)
[2024-09-03] MEDS: Baclofen 20 MG TABLET PO ×2 (09:08→21:41)
[2024-09-03] MEDS: guanFACINE HCl ER 1 MG TAB.ER.24H 3 MG PO (09:08)
[2024-09-03] MEDS: Acetaminophen 325 MG TABLET 650 MG PO ×2 (09:13→15:30)
--- NOTE | 2024-09-03 18:55 | P.PNPSI_ITS ---
Subjective Subjective Date of Service: 09/03/24 Reason For Visit: Psychosis/ Lillie Subjective Notes: Conditional Voluntary Healthcare Proxy: No Guardianship: No Medical Problems Affecting Mental Status: No Interim History: Pt reports she is working with her father on discharge planning. Tentative date is 09/04. Denies current sx, Denies SI, HI, AH, VH Team has received a message from pt's ex boyfriend today. Pt had written him a letter inviting him to the unit for a meeting. He reports he will not attend and that he currently has a restraining order with pt. Medication Compliance: Yes Side effects from medications: No Attending Groups: Intermittent Review of Systems Acute medical concerns: No Review of Systems Review of Systems Denies Mental Status Exam Mental Status Exam Patient Appearance: Appropriate Patient Orientation: Person, Place, Time and Situation Level of Consciousness: Alert Patient Behavior: Appropriate, Talkative and Good Eye Contact Mood Description: Anxious and Apprehensive Affect Description: Anxious and Apprehensive Patient Cognition Impaired: No Ability to Follow Directions: Good Speech Pattern: Spontaneous Speech Memory Description: Episodic Impaired Hallucinations: None Delusions: Not Present Perceptual Disturbances: Depersonalization and Derealization Thought Process: Goal Oriented Thought Content: positive for Circumstantial, positive for Perseveration and positive for Tangential (decreased) Depressive Symptoms: Increased Anxiety and Low Self Esteem Judgement: Fair Diagnostics Vital Signs (24Hr): Vital Signs - 24 hr 09/02/24 19:36 09/03/24 09:05 Temperature 97.1 F 97.6 F Pulse Rate 64 75 Blood Pressure 148/73 H 133/70 Pulse Oximetry 97 98 Oxygen Delivery Method Room Air Room Air BMI result Body Mass Index 29.3 Labs 08/31/24 07:59 Imaging Radiology Impressions: ITS Impressions KUB X-Ray 08/25/24 12:05 IMPRESSION: Small amount of stool in the colon. Electronically signed by: Akhil Jamison MD 08/25/2024 01:09 PM EDT Medications Medications Current Medications Acetaminophen (Acetaminophen 325 Mg Tablet) 650 mg PO Q6H PRN PRN Reason: Headache/Pain, Scale 1-10 Last Admin: 09/03/24 15:30 Dose: 650 mg Al Hydroxide/Mg Hydroxide (Magnesium Hydrox/Alum Hydrox 30 Ml Oral.Susp) 30 ml PO Q6H PRN PRN Reason: Heartburn/Nausea Amlodipine Besylate (Amlodipine Besylate 5 Mg Tablet) 5 mg PO DAILY [facility]; Protocol Last Admin: 09/03/24 09:08 Dose: 5 mg Amoxicillin (Amoxicillin Oral Susp 400 Mg/5 Ml 75 Ml Susp.Recon) 500 mg PO BID [facility] Stop: 09/06/24 09:00 Last Admin: 09/03/24 09:06 Dose: 500 mg Amphetamine/Dextroamphetamine (Amphetamine Mixed Salts 10 Mg Tablet) 15 mg PO BID@0900,1300 [facility] Last Admin: 08/26/24 12:02 Dose: 15 mg Amphetamine/Dextroamphetamine (Dextroamphetamine/Amphetamine Xr 10 Mg Cap.Er.24h) 20 mg PO DAILY [facility] Last Admin: 08/26/24 08:13 Dose: 20 mg Baclofen (Baclofen 20 Mg Tablet) 20 mg PO BID [facility] Last Admin: 09/03/24 09:08 Dose: 20 mg Benzocaine (Throat Lozenge, Medicated Lozenge) 1 lozenge MUCOUS MEM Q2H PRN PRN Reason: Sore Throat Last Admin: 09/02/24 20:28 Dose: 1 lozenge Clonazepam (Clonazepam 0.5 Mg Tablet) 0.5 mg PO BID PRN PRN Reason: anxiety/restlessness Last Admin: 08/28/24 13:31 Dose: 0.5 mg Guanfacine HCl (Guanfacine Hcl Er 1 Mg Tab.Er.24h) 3 mg PO DAILY [facility] Last Admin: 09/03/24 09:08 Dose: 3 mg Hydroxyzine HCl (Hydroxyzine Hcl 25 Mg Tablet) 25 mg PO Q6H PRN PRN Reason: mild anxiety Last Admin: 09/02/24 20:28 Dose: 25 mg Magnesium Hydroxide (Milk Of Magnesia 30 Ml Oral.Susp) 30 ml PO DAILY PRN PRN Reason: Constipation Last Admin: 08/31/24 10:34 Dose: 30 ml Metformin HCl (Metformin Hcl Er 500 Mg Tab.Er.24h) 500 mg PO BEDTIME [facility] Last Admin: 09/02/24 20:28 Dose: 500 mg Olanzapine (Olanzapine 7.5 Mg Tablet) 15 mg PO BEDTIME [facility] Last Admin: 09/02/24 20:28 Dose: 15 mg Pregabalin (Pregabalin 200 Mg Capsule) 200 mg PO BID [facility] Last Admin: 09/03/24 09:08 Dose: 200 mg Trazodone HCl (Trazodone Hcl 50 Mg Tablet) 50 mg PO BEDTIME MRX1 PRN PRN Reason: Insomnia Last Admin: 09/02/24 20:28 Dose: 50 mg Allergies Allergies Allergy/AdvReac Type Severity Reaction Status Date / Time No Known Allergies Allergy Verified 08/20/24 16:35 Assessment & Plan Assessment & Plan (1) Altered mood associated with lillie: Status: Acute Code(s): F30.9 - Manic episode, unspecified (2) PTSD (post-traumatic stress disorder): Status: Acute Code(s): F43.10 - Post-traumatic stress disorder, unspecified (3) ADHD (attention deficit hyperactivity disorder), combined type: Status: Acute Code(s): F90.2 - Attention-deficit hyperactivity disorder, combined type Plan gave dose of adderall today and guanfacine, on further review of prior 07/2024 visit will hold adderall further and only give guanfacine until Saturday when treatment team can coordinate with outpatient providers re ? of stimulant on this particular patient who may be manic and had recent psychosis in july. (Around [place] and other issues) 08/23/24 - restarted adderall but at lower overall dose than she was getting, continue guanfacine er- and added olanzapine - at bed time- ... patient not looking comittable at this time but will have a few days observation to determine if this is right path given episode in July- 08/26- Refusing psychiatric meds-olanzapine, risperdal, guanfacine. Strep +, refusing antibiotic Decompensating Temp q8h Enc fluids Hold on stimulants DC Risperdal-pt non compliant Increase Olanzapine to 15 mg HS Probable Section 7 due to care refusal 08/28- Continue to encourage treatment 08/29 Patient says she is feeling a little better now with antibiotic though still with some body aches. Patient says she is sleeping well and Zyprexa and will continue to take it. -seems to be more organized in speech and behavior; easier with which to engage 08/30 pt says feeling much better; still body aches but overall feels improved. zyprexa tiring but will see if body gets used to it (and tiredness maybe to due to recovering from illness) says no longer rape tapes i was out of my mind and no longer -agreed to start metformin to mitigate side-effect risks of Zyprexa; reviewed risks/side effect 08/31 Pt retracted TDN. This was accepted. Status returns to CV. Team has consulted with legal. Encourage milieu now that pt is clearer. 09/01 Continue tx 09/03 Continue tx. Pt working on a discharge plan to father's home. Reason for continued inpatient stay Substantial Risk for: rapid decompensation Time Spent With Patient Time: Total time managing care of this patient today ____ minutes.
[2024-09-03 20:00] VITALS: BP 120/60; PULSE 79; RESP 18; TEMP 36.5; O2SAT 98
[2024-09-03] MEDS: OLANZapine 7.5 MG TABLET 15 MG PO (21:40)
[2024-09-03] MEDS: hydrOXYzine HCL 25 MG TABLET PO (21:41)
[2024-09-03] MEDS: metFORMIN HCl ER 500 MG TAB.ER.24H PO (21:42)
[2024-09-03] MEDS: traZODone HCL 50 MG TABLET PO (21:42)
[2024-09-03] MEDS: clonazePAM 0.5 MG TABLET PO (21:42)
[2024-09-04] MEDS: Acetaminophen 325 MG TABLET 650 MG PO (06:10)
[2024-09-04 08:02] VITALS: BP 133/77; PULSE 72; TEMP 36.3; O2SAT 98
[2024-09-04] MEDS: guanFACINE HCl ER 1 MG TAB.ER.24H 3 MG PO (08:24)
[2024-09-04] MEDS: Baclofen 20 MG TABLET PO (08:24)
[2024-09-04] MEDS: Amoxicillin Oral Susp 400 mg/5 mL 75 mL SUSP.RECON 500 MG PO (08:25)
[2024-09-04] MEDS: amLODIPine Besylate 5 MG TABLET PO (08:25)
[2024-09-04] MEDS: Pregabalin 200 MG CAPSULE PO (08:25)
--- NOTE | 2024-09-04 10:18 | P.DS_ITS ---
DS: Providers Provider Date of admission: 08/22/24 13:53 Primary care physician: Unknown Physician DS: Diagnosis Discharge Diagnosis (1) Altered mood associated with arvin: Status: Acute (2) PTSD (post-traumatic stress disorder): Status: Acute (3) ADHD (attention deficit hyperactivity disorder), combined type: Status: Acute DS: Medications Discharge Medications Home Medications: Previous Rx's ?Medication ?Instructions ?Recorded acetaminophen 325 mg tablet 650 mg (2 x 325 mg) PO Q6H PRN 08/21/24 Headache/Pain, Scale 1-10 #0 tabs amlodipine 5 mg tablet 5 mg PO DAILY #7 tabs 09/04/24 amoxicillin 500 mg tablet 500 mg PO BID #10 tabs 09/04/24 baclofen 20 mg tablet 20 mg PO BID #14 tabs 09/04/24 clonazepam 0.5 mg tablet 0.5 mg PO BID PRN 09/04/24 Anxiety/Restlessness #14 tabs guanfacine 1 mg tablet,extended 3 mg (3 x 1 mg) PO DAILY #21 tabs 09/04/24 release 24 hr hydroxyzine HCl 25 mg tablet 25 mg PO Q6H PRN mild anxiety #15 09/04/24 tabs metformin 500 mg tablet,extended 500 mg PO BEDTIME #7 tabs 09/04/24 release 24 hr olanzapine 15 mg tablet 15 mg PO BEDTIME #14 tabs 09/04/24 pregabalin 200 mg capsule (Lyrica) 200 mg PO BID #14 caps 09/04/24 trazodone 50 mg tablet 50 mg PO BEDTIME MRX1 PRN Insomnia 09/04/24 #14 tabs Data Data Completed and Pending Completed studies during hospitalization [Text1]: 08/31/24 07:59 Creatinine 0.72 Estim Creat Clear Calc 130.1 Estimated GFR > 60 Imaging Diagnostic Imaging Impressions KUB X-Ray 08/25/24 12:05 IMPRESSION: Small amount of stool in the colon. Electronically signed by: Akhil Jamison MD 08/25/2024 01:09 PM EDT DS: Summary Time Spent with Patient Time attestation: Total time managing care of this patient today ____ minutes. Discharge Plan Discharge Anticipated Discharge Date/Time: 09/04/24 12:00 Patient Disposition: Home, Self-Care Discharge Diagnosis: PTSD ADHD Mood Dysregulation Referrals: [facility]-Therapy [Other] - 09/08/24 1:00 pm (Appointment is with Trenton Sanz ) [facility]Medication Managment [Other] - 09/09/24 11:20 am (Appointment is with Josephine Manriquez ) Physician,Unknown J [Primary Care Provider] - 1 Week Discharge Medications: New trazodone 50 mg Tablet 50 mg PO BEDTIME MRX1 PRN (Reason: Insomnia) Qty: 14 0RF clonazepam 0.5 mg Tablet 0.5 mg PO BID PRN (Reason: Anxiety/Restlessness) Qty: 14 0RF amlodipine 5 mg Tablet 5 mg PO DAILY Qty: 7 0RF Protocol: Hold for SBP< HOLD for SBP < : 90 hydroxyzine HCl 25 mg Tablet 25 mg PO Q6H PRN (Reason: mild anxiety) Qty: 15 0RF metformin 500 mg Tablet Extended Release 24 Hr 500 mg PO BEDTIME Qty: 7 0RF guanfacine 1 mg Tablet Extended Release 24 Hr 3 mg PO DAILY Qty: 21 0RF amoxicillin 500 mg tablet 500 mg PO BID Qty: 10 0RF olanzapine 15 mg tablet 15 mg PO BEDTIME Qty: 14 0RF Continued acetaminophen 325 mg Tablet 650 mg PO Q6H PRN (Reason: Headache/Pain, Scale 1-10) Qty: 0 0RF baclofen 20 mg Tablet 20 mg PO BID Qty: 14 0RF pregabalin [Lyrica] 200 mg Capsule 200 mg PO BID Qty: 14 0RF Discontinued nicotine (polacrilex) 2 mg Gum 4 mg buccal Q2H PRN (Reason: Nicotine Cravings) Qty: 0 0RF amlodipine 5 mg Tablet 5 mg PO DAILY Qty: 0 0RF Protocol: Hold for SBP< HOLD for SBP < : 90 nicotine 21 mg/24 hr Patch 24 Hour 21 mg transdermal DAILY PRN (Reason: smoking cessation) Qty: 0 0RF clonazepam 0.5 mg Tablet 0.5 mg PO BID Qty: 0 0RF olanzapine 5 mg Tablet 5 mg PO TID PRN (Reason: agitation) Qty: 0 0RF risperidone 1 mg Tablet 1 mg PO BID Qty: 0 0RF Discharge Orders: Discharge Order (Routine); Ordered 09/04/24 Ordered By: Annabel Quesada Diet: Advance to usual diet Activity on Discharge: As tolerated Stand Alone Forms: Patient Portal Discharge page, Community Support Print Language: Botswanan Care Plan Goals: Mood and Behavioral Stabilization Health Concerns: Mood and Behavioral Stabilization Plan of Treatment: Attend scheduled appointments Take medications as directed Assessment: Agata will live with her parents. She denies SI,HI,AH,VH. There are no acute signs of arvin or psychosis She is in agreement with her discharge plan of care.
== END 2024-09-04 11:04 | disposition home or self-care (01) | DRG 753 ==
PROVIDERS: Psychiatry & Neurology Psychiatry; Admitting Provider Internal Medicine; Visit Provider Clinical Nurse Specialist Psychiatric/Mental Health, Adult
DX: F30.9 Manic episode, unspecified (principal); F43.10 Post-traumatic stress disorder, unspecified; F90.2 Attention-deficit hyperactivity disorder, combined type; J02.0 Streptococcal pharyngitis; Z20.822 Contact with and (suspected) exposure to COVID-19; Z87.891 Personal history of nicotine dependence; Z79.899 Other long term (current) drug therapy
CPT/HCPCS: 0241U; 36415; 74018; 80053; 80061; 82565; 87651

== ENCOUNTER 2024-08-22 13:53 | Outpatient (BNV) | payer BC, SELFPAY | END 2024-08-25 12:05 | PROVIDERS: Admitting Provider Internal Medicine; Visit Provider Radiology Diagnostic Radiology | DX: K59.00 Constipation, unspecified (principal) | CPT/HCPCS: 74018 ==

== ENCOUNTER → 2024-08-22 13:53 | Outpatient (BNV) | payer BC, SELFPAY | PROVIDERS: Admitting Provider Internal Medicine; Visit Provider Clinical Nurse Specialist Psychiatric/Mental Health, Adult | DX: F30.9 Manic episode, unspecified (principal); F43.11 Post-traumatic stress disorder, acute; F90.2 Attention-deficit hyperactivity disorder, combined type | CPT/HCPCS: 99231; 99232 ==